=== PATIENT | female | born 1970 | race Caucasian/White ===

== ENCOUNTER 2018-02-10 17:59 | Emergency (ER) | payer MEDICAID, SELFPAY ==
[2018-02-10 18:05] VITALS: BP 152/106; PULSE 107; RESP 18; TEMP 36.5; O2SAT 98
--- NOTE | 2018-02-10 19:50 | W.ED.GENAD ---
Discharge Plan Discharge Details Chief Complaint: DentalOral Clinical Impression: Pain, dental Primary Care Provider: Molly Pelayo ED Provider: Anna Conrad Disposition Patient Disposition: HOME Condition: Stable Home Meds and New Rx's Prescriptions: New clindamycin HCl 150 mg capsule 450 mg PO TID 7 Days Qty: 63 RF: 0 Continue gabapentin 800 MG tablet 800 mg PO QID RF: 0 omeprazole 40 MG capsule,delayed release(DR/EC) 40 mg PO BID Qty: 60 RF: 0 zonisamide [Zonegran] 100 MG capsule 100 mg PO BID Qty: 6 RF: 0 alprazolam [Xanax XR] 3 MG tablet extended release 24 hr 3 mg PO HS RF: 0 zolpidem 5 MG tablet 5 mg PO HS RF: 0 prazosin 2 MG capsule 2 mg PO HS RF: 0 venlafaxine 75 MG tablet 300 mg PO DAILY AM RF: 0 clonidine HCl [Catapres] 0.1 MG tablet 0.2 mg PO BID Qty: 120 RF: 0 losartan 25 MG tablet 50 mg PO DAILY RF: 0 Discharge Instructions Instructions: Dental Caries (ED), Toothache (ED) Additional Instructions: Follow-up with your scheduled appointment with your dentist next week. Take the antibiotics until finished. Return to the emergency department with any worsening or new concerning symptoms. Discharge Data Discharge Date/Time-TO BE ENTERED AT DEPARTURE: 02/10/18 20:06 Discharge Physician: Anna Conrad Medical Decision Making MDM Narrative Medical decision making narrative: Patient is a 47-year-old female who presents with dental pain for the past week. She states she fell last week and had a seizure and hit her tooth and has been having pain in this area. States she has had pain in this area before but states it became worse since then. She has diffuse dental caries throughout. Her area of pain is tooth #26 or 27, hard to know as patient has multiple missing teeth. There is no obvious abscess or fracture but she does have tenderness to palpation as well as erythema and mild edema of mucosa at base of tooth. She has no fever and appears nontoxic. She is swallowing without difficulty, airway intact and no drooling. There is no submandibular swelling or findings consistent with Oneal's angina. The patient has an allergy to penicillin. She states she has tolerated clindamycin in the past. She states she has a follow-up appointment with her dentist in 1 week but is requesting medication for pain. Patient has been seen here before for narcotic overdose and has a history of opioid abuse in the past. She also takes multiple sedating meds including Lorazepam and gabapentin. She is requesting narcotic pain medication. I explained to patient that I cannot give this to her but I will give her a dose of clindamycin and a prescription for home. She was also offered a dental block but refuses this. She was also offered care management to help for an earlier follow-up appointment with dentist prior to next week but she is declining this as well. Patient is requesting to leave. She was instructed to return here with any concerns. HPI - General Adult General Mode of arrival: ambulatory. Date/Time Provider Initiated Documentation: 02/10/18 19:00. Limitations to Documentation: no limitations. Information obtained by: patient. HPI Narrative: Patient is a 47-year-old female who presents the ER with complaint of right lower tooth pain for the past week. Patient states she had a recent seizure and fell and may have bit down on her tooth and sustained a tooth fracture. Patient states she has been complaining of pain in this area since then. She denies known fever. Patient cannot take Motrin due to allergy. Related Data Home Medications Medication Instructions Recorded Confirmed gabapentin 800 mg PO QID tab-cap 03/30/17 12/29/17 alprazolam [Xanax XR] 3 mg PO HS 04/07/17 12/29/17 prazosin 2 mg PO HS 04/07/17 12/29/17 venlafaxine 300 mg PO DAILY AM 04/07/17 12/29/17 zolpidem 5 mg PO HS 04/07/17 12/29/17 losartan 50 mg PO DAILY 12/29/17 12/29/17 Previous Rx's Medication Instructions Recorded zonisamide [Zonegran] 100 mg PO BID #6 capsule 03/27/16 clonidine HCl [Catapres] 0.2 mg PO BID #120 tab 12/21/17 clindamycin HCl 450 mg PO TID 7 Days #63 cap 02/10/18 Allergies Allergy/AdvReac Type Severity Reaction Status Date / Time ibuprofen Allergy Severe anaphylaxis Unverified 02/10/18 18:28 ketorolac tromethamine Allergy Severe rash/throat Unverified 02/10/18 18:28 [From Toradol] swelling Penicillins Allergy Severe anaphylaxis Unverified 02/10/18 18:28 amoxicillin trihydrate Allergy Mild Skin Rash Unverified 02/10/18 18:28 [From Augmentin] codeine [Codeine] Allergy Mild Skin Rash Unverified 02/10/18 18:28 hydromorphone [From Dilaudid] Allergy Mild Skin Rash Unverified 02/10/18 18:28 potassium clavulanate Allergy Mild Skin Rash Unverified 02/10/18 18:28 [From Augmentin] lithium [[place]] AdvReac Intermediate tremor Unverified 02/10/18 18:28 divalproex sodium AdvReac Mild Nausea Unverified 02/10/18 18:28 [From Depakote] General Stated Complaint: DentalOral NIKIA: 4 Review of Systems Review of Systems All systems reviewed & are unremarkable except as noted in HPI and below Constitutional Denies chills, Denies fever(s) and Denies headache(s) Eyes Patient Reports system reviewed and no additional complaints, except as docu and Denies blurry vision ENT Reports dental pain, Reports otalgia (right side ), Denies headache(s), Denies nasal congestion, Denies sore throat and Denies throat swelling Cardiovascular Denies chest pain, Denies syncope, Denies rapid heart rate and Denies dyspnea Respiratory Denies dyspnea Musculoskeletal Denies back pain and Denies joint swelling Integumentary/Breasts Denies lesions and Denies rash Neurologic Denies syncope and Denies headache(s) Psychiatric Denies depression Allergic/Immunologic Denies throat swelling [facility] Medical History Anxiety Helicobacter pylori infection Peptic ulcer disease Restless leg syndrome Seizure disorder Substance abuse in remission Social History Smoking/Tobacco Use Status: Current-Occasional Surgical History EGD - MAC (04/06/17) EGD - MAC (07/07/17) Exam Const General: cooperative and healthy appearing Orientation: alert and awake HENMT Head: normal to inspection Ears: hearing grossly normal bilaterally, external ears normal and TM's normal bilaterally General nose exam: external nose normal and nares normal Face and sinus: normal facial exam Mouth: oral mucosae normal Teeth and gingiva: other (Dental caries and multiple missing teeth throughout. She has tenderness to palpation possible tooth #26 or 27. There is surrounding mild erythema and edema noted at base of tooth but no discrete abscess noted) Throat: posterior oropharynx normal, uvula midline and no peritonsillar masses Eyes General: appearance normal, both eyes and all related structures Eyelids: eyelids normal EOM: EOM intact bilaterally Neck Neck: normal visual inspection Lymphatic: no lymphadenopathy noted Resp Effort & Inspection: normal respiratory effort and able to speak in complete sentences Cardio Rate: regular rate Skin General skin exam: no rashes or lesions noted Neuro General: alert and awake Cognition: normal cognition Speech: speech normal Gait: normal gait Extrem General: normal to inspection and full ROM Psych Appearance: grossly normal Mental Status: mental status grossly normal Speech and Movement: speech and movement normal Affect: normal affect Thought Process: normal Course Vital Signs Temperature 97.7 F 02/10/18 18:05 Pulse 107 H 02/10/18 18:05 Respiratory Rate 18 02/10/18 18:05 Blood Pressure 152/106 H 02/10/18 18:05 Pulse Oximetry 98 02/10/18 18:05 Temperature 97.7 F 02/10/18 18:05 Pulse 107 H 02/10/18 18:05 Respiratory Rate 18 02/10/18 18:05 Blood Pressure 152/106 H 02/10/18 18:05 Pulse Oximetry 98 02/10/18 18:05
--- NOTE | 2018-02-10 20:02 | ED.GENADUL_ITS ---
Discharge Plan Discharge Details Chief Complaint: DentalOral Clinical Impression: Pain, dental Primary Care Provider: Molly Pelayo ED Provider: Anna Conrad Disposition Patient Disposition: HOME Condition: Stable Home Meds and New Rx's Prescriptions: New clindamycin HCl 150 mg capsule 450 mg PO TID 7 Days Qty: 63 RF: 0 Continue gabapentin 800 MG tablet 800 mg PO QID RF: 0 omeprazole 40 MG capsule,delayed release(DR/EC) 40 mg PO BID Qty: 60 RF: 0 zonisamide [Zonegran] 100 MG capsule 100 mg PO BID Qty: 6 RF: 0 alprazolam [Xanax XR] 3 MG tablet extended release 24 hr 3 mg PO HS RF: 0 zolpidem 5 MG tablet 5 mg PO HS RF: 0 prazosin 2 MG capsule 2 mg PO HS RF: 0 venlafaxine 75 MG tablet 300 mg PO DAILY AM RF: 0 clonidine HCl [Catapres] 0.1 MG tablet 0.2 mg PO BID Qty: 120 RF: 0 losartan 25 MG tablet 50 mg PO DAILY RF: 0 Discharge Instructions Instructions: Dental Caries (ED), Toothache (ED) Additional Instructions: Follow-up with your scheduled appointment with your dentist next week. Take the antibiotics until finished. Return to the emergency department with any worsening or new concerning symptoms. Discharge Data Discharge Date/Time-TO BE ENTERED AT DEPARTURE: 02/10/18 20:06 Discharge Physician: Anna Conrad Medical Decision Making MDM Narrative Medical decision making narrative: Patient is a 47-year-old female who presents with dental pain for the past week. She states she fell last week and had a seizure and hit her tooth and has been having pain in this area. States she has had pain in this area before but states it became worse since then. She has diffuse dental caries throughout. Her area of pain is tooth #26 or 27, hard to know as patient has multiple missing teeth. There is no obvious abscess or fracture but she does have tenderness to palpation as well as erythema and mild edema of mucosa at base of tooth. She has no fever and appears nontoxic. She is swallowing without difficulty, airway intact and no drooling. There is no submandibular swelling or findings consistent with Oneal 's angina. The patient has an allergy to penicillin. She states she has tolerated clindamycin in the past. She states she has a follow-up appointment with her dentist in 1 week but is requesting medication for pain. Patient has been seen here before for narcotic overdose and has a history of opioid abuse in the past. She also takes multiple sedating meds including Lorazepam and gabapentin. She is requesting narcotic pain medication. I explained to patient that I cannot give this to her but I will give her a dose of clindamycin and a prescription for home. She was also offered a dental block but refuses this. She was also offered care management to help for an earlier follow-up appointment with dentist prior to next week but she is declining this as well. Patient is requesting to leave. She was instructed to return here with any concerns. HPI - General Adult General Mode of arrival: ambulatory . Date/Time Provider Initiated Documentation: 02/10/18 19:00 . Limitations to Documentation: no limitations . Information obtained by: patient . HPI Narrative: Patient is a 47-year-old female who presents the ER with complaint of right lower tooth pain for the past week. Patient states she had a recent seizure and fell and may have bit down on her tooth and sustained a tooth fracture. Patient states she has been complaining of pain in this area since then. She denies known fever. Patient cannot take Motrin due to allergy. Related Data Home Medications Medication Instructions Recorded Confirmed gabapentin 800 mg PO QID tab-cap 03/30/17 12/29/17 alprazolam [Xanax XR] 3 mg PO HS 04/07/17 12/29/17 prazosin 2 mg PO HS 04/07/17 12/29/17 venlafaxine 300 mg PO DAILY AM 04/07/17 12/29/17 zolpidem 5 mg PO HS 04/07/17 12/29/17 losartan 50 mg PO DAILY 12/29/17 12/29/17 Previous Rx's Medication Instructions Recorded zonisamide [Zonegran] 100 mg PO BID #6 capsule 03/27/16 clonidine HCl [Catapres] 0.2 mg PO BID #120 tab 12/21/17 clindamycin HCl 450 mg PO TID 7 Days #63 cap 02/10/18 Allergies Allergy/AdvReac Type Severity Reaction Status Date / Time ibuprofen Allergy Severe anaphylaxis Unverified 02/10/18 18:28 ketorolac tromethamine Allergy Severe rash/throat Unverified 02/10/18 18:28 [From Toradol] swelling Penicillins Allergy Severe anaphylaxis Unverified 02/10/18 18:28 amoxicillin trihydrate Allergy Mild Skin Rash Unverified 02/10/18 18:28 [From Augmentin] codeine [Codeine] Allergy Mild Skin Rash Unverified 02/10/18 18:28 hydromorphone [From Dilaudid] Allergy Mild Skin Rash Unverified 02/10/18 18:28 potassium clavulanate Allergy Mild Skin Rash Unverified 02/10/18 18:28 [From Augmentin] lithium [[place]] AdvReac Intermediate tremor Unverified 02/10/18 18:28 divalproex sodium AdvReac Mild Nausea Unverified 02/10/18 18:28 [From Depakote] General Stated Complaint: DentalOral NIKIA: 4 Review of Systems Review of Systems All systems reviewed & are unremarkable except as noted in HPI and below Constitutional Denies chills, Denies fever(s) and Denies headache(s) Eyes Patient Reports system reviewed and no additional complaints, except as docu and Denies blurry vision ENT Reports dental pain, Reports otalgia (right side ), Denies headache(s), Denies nasal congestion, Denies sore throat and Denies throat swelling Cardiovascular Denies chest pain, Denies syncope, Denies rapid heart rate and Denies dyspnea Respiratory Denies dyspnea Musculoskeletal Denies back pain and Denies joint swelling Integumentary/Breasts Denies lesions and Denies rash Neurologic Denies syncope and Denies headache(s) Psychiatric Denies depression Allergic/Immunologic Denies throat swelling [facility] Medical History Anxiety Helicobacter pylori infection Peptic ulcer disease Restless leg syndrome Seizure disorder Substance abuse in remission Social History Smoking/Tobacco Use Status: Current-Occasional Surgical History EGD - MAC (04/06/17) EGD - MAC (07/07/17) Exam Const General: cooperative and healthy appearing Orientation: alert and awake HENMT Head: normal to inspection Ears: hearing grossly normal bilaterally, external ears normal and TM's normal bilaterally General nose exam: external nose normal and nares normal Face and sinus: normal facial exam Mouth: oral mucosae normal Teeth and gingiva: other (Dental caries and multiple missing teeth throughout. She has tenderness to palpation possible tooth #26 or 27. There is surrounding mild erythema and edema noted at base of tooth but no discrete abscess noted) Throat: posterior oropharynx normal, uvula midline and no peritonsillar masses Eyes General: appearance normal, both eyes and all related structures Eyelids: eyelids normal EOM: EOM intact bilaterally Neck Neck: normal visual inspection Lymphatic: no lymphadenopathy noted Resp Effort & Inspection: normal respiratory effort and able to speak in complete sentences Cardio Rate: regular rate Skin General skin exam: no rashes or lesions noted Neuro General: alert and awake Cognition: normal cognition Speech: speech normal Gait: normal gait Extrem General: normal to inspection and full ROM Psych Appearance: grossly normal Mental Status: mental status grossly normal Speech and Movement: speech and movement normal Affect: normal affect Thought Process: normal Course Vital Signs Temperature 97.7 F 02/10/18 18:05 Pulse 107 H 02/10/18 18:05 Respiratory Rate 18 02/10/18 18:05 Blood Pressure 152/106 H 02/10/18 18:05 Pulse Oximetry 98 02/10/18 18:05 Temperature 97.7 F 02/10/18 18:05 Pulse 107 H 02/10/18 18:05 Respiratory Rate 18 02/10/18 18:05 Blood Pressure 152/106 H 02/10/18 18:05 Pulse Oximetry 98 02/10/18 18:05
[2018-02-10] MEDS: Clindamycin 150 MG CAP 450 MG PO (20:05)
--- NOTE | 2018-02-26 09:46 | PDOC.ERCMPRO ---
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
--- NOTE | 2018-02-26 09:51 | CMPROGNOTE_ITS ---
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
== END 2018-02-10 20:06 | disposition home or self-care (01) ==
PROVIDERS: Emergency Provider Physician Assistant; PCP Family Medicine
DX: R68.84 Jaw pain (principal); I10 Essential (primary) hypertension
CPT/HCPCS: 99283

== ENCOUNTER 2018-03-06 15:16 | Emergency (ER) | payer MEDICAID, SELFPAY ==
[2018-03-06 15:22] VITALS: BP 125/76; PULSE 105; RESP 16; TEMP 36.5; O2SAT 98
--- NOTE | 2018-03-06 17:25 | DI.CT_ITS ---
SYMPTOM/DIAGNOSIS: HEAD INJURY WITH ONGOING HEADACHE CERVICAL SPINE CT: 03/06 CT examination of the cervical spine was performed utilizing multi-slice acquisition and multi-planar reconstruction. There is no evidence of a cervical fracture or dislocation. Images obtained through the lung apices are unremarkable. Tracheolaryngeal structures appear intact. No cervical mass or adenopathy seen. CONCLUSION: No evidence of acute cervical fracture. CRANIAL CT: 03/[address] was performed. Ventricular system is normal in appearance. No evidence of acute intracranial hemorrhage, mass effect or midline shift. The orbital and temporal bone structures appear intact. No calvarial fracture seen. CONCLUSION: No evidence of acute intracranial injury.
--- NOTE | 2018-03-06 18:02 | W.ED.GENAD ---
Discharge Plan Disposition Patient Disposition: AGAINST MEDICAL ADVICE Condition: Stable Discharge Details Chief Complaint: Headache Clinical Impression: Headache Primary Care Provider: Molly Pelayo ED Provider: Alisson Villalpando Home Meds and New Rx's Prescriptions: Continue gabapentin 800 MG tablet 800 mg PO QID RF: 0 omeprazole 40 MG capsule,delayed release(DR/EC) 40 mg PO BID Qty: 60 RF: 0 zonisamide [Zonegran] 100 MG capsule 100 mg PO BID Qty: 6 RF: 0 alprazolam [Xanax XR] 3 MG tablet extended release 24 hr 3 mg PO HS RF: 0 zolpidem 5 MG tablet 5 mg PO HS RF: 0 prazosin 2 MG capsule 2 mg PO HS RF: 0 venlafaxine 75 MG tablet 300 mg PO DAILY AM RF: 0 clonidine HCl [Catapres] 0.1 MG tablet 0.2 mg PO BID Qty: 120 RF: 0 losartan 25 MG tablet 50 mg PO DAILY RF: 0 Discharge Data Discharge Date/Time-TO BE ENTERED AT DEPARTURE: 03/06/18 18:37 Medical Decision Making Patient presents to the emergency department for evaluation of a headache following a head injury yesterday obtained following a seizure she has a known seizure history states she has been taking her medications as prescribed. She denies any other injuries from the seizure. I am going to obtain routine lab work including electrolytes CBC and a head CT to rule out an acute traumatic injury. I did want to give her IV fluids and IV Compazine to treat her headache but staff was unable to obtain IV access. I did offer Tylenol which she did not want to except that she had taken some prior to arrival I then offered her some Benadryl to help with her symptoms and she declined that stating she takes that at nighttime. She wanted something stronger for her headache I did explain that in the setting of a head injury that narcotic administration would not be prudent on my part. Review of her labs showed some mild dehydration with a sodium of 134 BUN 22 creatinine 1.08. She states her p.o. intake was poor over the last 24 hours following her seizure. She denies nausea vomiting or abdominal pain. Since we were unable to obtain IV access I did ask staff to push p.o. fluids on her and she was tolerating the fluids very well in the emergency department. She did however become very angry with me as I was not administering narcotics. I still needed to review her CAT scan which had not been read by radiology yet and she was requesting to leave AMA. Because I did not have a final read I did not feel comfortable with a discharge so did review AMA risks with her including undiagnosed acute intracranial bleed from her trauma leading to or debility. She verbalized understanding of this risk and did sign the AMA paperwork. After she left the department her head CT read did show no acute intracranial process. Medical Records Medical records reviewed: Yes I reviewed the patient's medical records. Patient presents to the emergency department for persistent headache not responsive to acetaminophen after having a seizure yesterday. She states she did strike her head. She states is typical for her to have seizures but she has not had a seizure for 6 months. She denies any other injury. She has reports of nausea. She has no other injuries reported. HPI General Date/Time Provider Initiated Documentation: 03/06/18 17:25. Related Data Home Medications Medication Instructions Recorded Confirmed zonisamide [Zonegran] 100 mg PO BID #6 capsule 03/27/16 03/06/18 gabapentin 800 mg PO QID tab-cap 03/30/17 03/06/18 alprazolam [Xanax XR] 3 mg PO HS 04/07/17 03/06/18 prazosin 2 mg PO HS 04/07/17 03/06/18 venlafaxine 300 mg PO DAILY AM 04/07/17 03/06/18 zolpidem 5 mg PO HS 04/07/17 03/06/18 omeprazole 40 mg PO BID #60 tab-cap 04/14/17 03/06/18 clonidine HCl [Catapres] 0.2 mg PO BID #120 tab 12/21/17 03/06/18 losartan 50 mg PO DAILY 12/29/17 03/06/18 Previous Rx's Medication Instructions Recorded zonisamide [Zonegran] 100 mg PO BID #6 capsule 03/27/16 omeprazole 40 mg PO BID #60 tab-cap 04/14/17 clonidine HCl [Catapres] 0.2 mg PO BID #120 tab 12/21/17 Allergies Allergy/AdvReac Type Severity Reaction Status Date / Time ibuprofen Allergy Severe anaphylaxis Unverified 03/06/18 15:43 ketorolac tromethamine Allergy Severe rash/throat Unverified 03/06/18 15:43 [From Toradol] swelling Penicillins Allergy Severe anaphylaxis Unverified 03/06/18 15:43 amoxicillin trihydrate Allergy Mild Skin Rash Unverified 03/06/18 15:43 [From Augmentin] codeine [Codeine] Allergy Mild Skin Rash Unverified 03/06/18 15:43 hydromorphone [From Dilaudid] Allergy Mild Skin Rash Unverified 03/06/18 15:43 potassium clavulanate Allergy Mild Skin Rash Unverified 03/06/18 15:43 [From Augmentin] lithium [[place]] AdvReac Intermediate tremor Unverified 03/06/18 15:43 divalproex sodium AdvReac Mild Nausea Unverified 03/06/18 15:43 [From Depakote] General Stated Complaint: Headache NIKIA: 3 Review of Systems Review of Systems All systems reviewed & are unremarkable except as noted in HPI and below Constitutional Reports fatigue, Reports headache(s) and Reports poor appetite Eyes Denies change in vision ENT Reports headache(s) Cardiovascular Denies chest pain and Denies dyspnea Respiratory Denies cough and Denies dyspnea Gastrointestinal Denies abdominal pain, Denies constipation, Denies diarrhea and Reports nausea Musculoskeletal Denies back pain Neurologic Reports headache(s) Endocrine Reports fatigue PFSH Medical History Anxiety Helicobacter pylori infection Peptic ulcer disease Restless leg syndrome Seizure disorder Substance abuse in remission Social History Smoking/Tobacco Use Status: Current-Occasional Surgical History EGD - MAC (04/06/17) EGD - MAC (07/07/17) Exam Const General: cooperative, healthy appearing, comfortable, no acute distress and well developed Orientation: alert, awake and oriented x3 HENMT Mouth: moist mucous membranes Resp Effort & Inspection: normal respiratory effort Auscultation: clear to auscultation bilaterally Cardio Rate: regular rate Rhythm: regular rhythm GI Inspection: normal to inspection Palpation: soft, no guarding and no hernias Auscultation: normal bowel sounds Skin General skin exam: no rashes or lesions noted Neuro General: alert, awake and oriented x3 Extrem General: normal to inspection and full ROM Course Vital Signs Temperature 36.5 C 03/06/18 15:22 Pulse 105 H 03/06/18 15:22 Respiratory Rate 16 03/06/18 15:22 Blood Pressure 125/76 03/06/18 15:22 Pulse Oximetry 98 03/06/18 15:22 Temperature 36.5 C 03/06/18 15:22 Temperature Source Temporal Artery Scan 03/06/18 15:22 Pulse 105 H 03/06/18 15:22 Respiratory Rate 16 03/06/18 15:22 Respiratory Effort Non-Labored 03/06/18 15:26 Blood Pressure 125/76 03/06/18 15:22 Pulse Oximetry 98 03/06/18 15:22 Pain Level 10 03/06/18 15:22
[2018-03-06 18:19] LABS: Abs Immature Grans 0.02 k/cumm (0.0-0.09); Absolute Basophil Count 0.06 k/cumm (0.0-0.2); Absolute Eosinophil Count 0.22 k/cumm (0.0-0.7); Absolute Lymphocyte Count 3.87 k/cumm (1.2-3.4); Absolute Monocyte Count 0.86 k/cumm (0.11-0.7); Absolute Neutrophil Count 5.34 k/cumm (1.2-6.7); Basophils % 0.6; Eosinophils % 2.1; HCT 39.4 % (36.0-46.0); HGB 13.3 g/dL (12.0-15.5); Immature Grans % 0.2; Lymphocytes % 37.3; Mean Corp. HGB Concentration 33.8 g/dL (32.0-36.0); Mean Corpuscular Hemoglobin 31.3 pg (27.0-33.0); Mean Corpuscular Volume 92.7 fL (80-95); Mean Platelet Volume 9.2 fL (8.0-11.0); Monocytes % 8.3; Neutrophils % 51.5; Platelet Count 368 x1000/uL (130-400); RBC 4.25 m/cumm (4.00-5.20); RBC Distribution Width 12.7 % (11.7-14.6); White Blood Cell Count 10.37 k/cumm (4.4-10.8)
--- NOTE | 2018-03-06 18:27 | DI.VRAD_ITS ---
EXAM: CT Head Without Intravenous Contrast CLINICAL HISTORY: 47 years old, female; Injury or trauma; Injury Head injury with ongoing headache, HX of seizures; Initial encounter; Blunt trauma TECHNIQUE: Axial computed tomography images of the head/brain without intravenous contrast. Coronal and sagittal reformatted images were created and reviewed. COMPARISON: No relevant prior studies available. FINDINGS: Brain: Unremarkable. No hemorrhage. No significant white matter disease. No edema. Ventricles: Unremarkable. No ventriculomegaly. Bones/joints: Unremarkable. No acute fracture. Soft tissues: Unremarkable. Vasculature: Mild calcified intracranial atherosclerotic vessel disease. Sinuses: Unremarkable as visualized. No acute sinusitis. Mastoid air cells: Unremarkable as visualized. No mastoid effusion. IMPRESSION: No acute findings. EXAM: CT Cervical Spine Without Intravenous Contrast CLINICAL HISTORY: 47 years old, female; Injury or trauma; Injury Head injury with ongoing headache, HX of seizures; Initial encounter; Blunt trauma TECHNIQUE: Axial computed tomography images of the cervical spine without intravenous contrast. Coronal and sagittal reformatted images were created and reviewed. COMPARISON: CT HEAD AND CSPINE W/O CONTRAST 12/16/2017 7:25 PM FINDINGS: Vertebrae: Mild to moderate multilevel degenerative changes including degenerative disc disease, spondylosis and facet degenerative changes. Mild kyphosis which may be secondary to patient positioning and/or muscle spasm and/or multilevel degenerative change. No acute fracture. Discs/spinal canal/neural foramina: See above. Other bones/joints: Healed right clavicular fracture. Soft tissues: Unremarkable. Lung apices: Unremarkable as visualized. IMPRESSION: No acute findings. Dictated and Authenticated by: Noe Bullard MD. Ordering:JAVED GUADALUPE MD
[2018-03-06 18:31] LABS: Anion Gap 9.8 mmol/L (3-11); BUN 22 mg/dL (7-18); CO2 25.2 mmol/L (21.0-32.0); CREATININE 1.08 mg/dL (0.55-1.02); Calcium 9.3 mg/dL (8.5-10.1); Chloride 99 mmol/L (98-107); Estimated GFR 53.92 (mL/min/1.73m2); Glucose 76 mg/dL (70-100); Potassium 4.2 mmol/L (3.5-5.1); Sodium 134 mmol/L (136-145)
[2018-03-06 18:32] LABS: INR 1.1 (1.0-3.5); Prothrombin Time 10.3 sec (9.3-10.8)
== END 2018-03-06 18:37 | disposition left against medical advice (07) ==
LOC: ER 17:51
PROVIDERS: Emergency Provider Nurse Practitioner Acute Care; PCP Family Medicine
DX: R51 Headache (principal); S09.90XA Unspecified injury of head, initial encounter; W01.190A Fall on same level from slipping, tripping and stumbling with subsequent striking against furniture, initial encounter; G40.909 Epilepsy, unspecified, not intractable, without status epilepticus; E87.1 Hypo-osmolality and hyponatremia; I10 Essential (primary) hypertension
CPT/HCPCS: 36415; 80048; 99284; 70450; 72125; 85025; 85610; 99285

== ENCOUNTER 2018-03-18 20:55 | Outpatient (REF) | payer MEDICAID, SELFPAY | END 2018-03-18 21:15 | LOC: NCHCN 20:55 | PROVIDERS: PCP Family Medicine; Visit Provider Family Medicine | DX: R30.0 Dysuria (principal); R10.9 Unspecified abdominal pain | CPT/HCPCS: 87086 ==

== ENCOUNTER 2018-03-23 13:44 | Emergency (ER) | payer MEDICAID, SELFPAY ==
[2018-03-23 13:51] VITALS: BP 177/113; PULSE 89; RESP 16; TEMP 36.5; O2SAT 100
--- NOTE | 2018-03-23 14:57 | W.ED.GENAD ---
Medical Decision Making <Александр Talbert DO - Last Filed: 04/21/18 10:05> This is a 47-year-old female with a past medical history of hypertension, peptic ulcer disease, anxiety, who presents today for evaluation of bilateral flank pain since , fever of 102 at home days ago, and mild abdominal pain. Physical exam demonstrates notable paraspinal tenderness and spasm, no midline tenderness. Mild to moderate bilateral CVA tenderness. Patient signs and symptoms are concerning for potential urolithiasis or bladder infection. We will perform urinalysis, laboratory workup, address her pain and her muscle spasms. We will most likely be getting a CT scan to rule out any acute stone there is any signs of significant blood in her urinalysis. 3:48 PM Orders have been placed, EKG has been evaluated, we did offer the patient Tylenol, Lidoderm patch, and Flexeril however she became very upset with these offerings and stated that I might as well just ripped my IV out if you are just going to treat me like this and not give me something real for my pain.I sat down and discussed the patient's feelings with her, I discussed my concerns with the current opiate crisis, as well as her reassuring vital signs. Discussed with her how it is my philosophy to start with these medications, and then escalate as needed. After this discussion she did agree to a trial with these medications to see if they would help her symptoms. The case will be signed out to my colleague Dr. Conrad. Differential at this time includes urinary tract infection, pyelonephritis, urolithiasis versus benign paraspinal muscle spasms secondary to chronic back pain. EKG 15: 41 Rate 84, MA 162, QTc 433, QRS 90, sinus rhythm, no ST elevations or depressions, no T wave inversions except for V1. Questionable Q waves in lead III. No evidence of STEMI, or right heart strain. Candidate vein examined with linear array probe - confirmed collapsibility, lack of pulsatility, and proper anatomic location. Using aseptic technique, 18-gauge IV catheter inserted with flash of blood noted, flow of venous blood confirmed in the right AC. Flushes easily and without pain. No hematoma or complications noted. IV secured. Patient tolerated well. <Anna Conrad DO - Last Filed: 03/26/18 02:39> Please see Dr. Talbert's note for initial presentation, exam and plan. Patient is a 47-year-old female who presents with bilateral flank pain with radiation into her groin for the past 5 days. She admits to a temp of 102 at home a few days ago but not since then. Dr. Talbert performed a cardiac workup and urinalysis and a dose of Flexeril. Dr. Talbert had also ordered a Lidoderm patch but she refused this. EKG noted a rate of 84, sinus, no acute ST elevation or depression, QTc 433, QRS 90. Prior to my evaluation after endorsement, nurse informed me that patient is requesting to leave. Patient states no one cares about me here. Blood pressure hypertensive, remainder vitals within normal limits. Afebrile. Patient appears nontoxic and in no acute distress. She has bilateral CVA tenderness. Abdomen soft and nontender. I discussed with patient at if we do not find any acute findings on workup, there would be no indication for narcotic pain medication. I have seen patient multiple times in the past for similar bilateral flank pain with negative workups. I discussed with the patient that if she waits I can discuss her lab work with her once it is resulted but she is refusing to stay for this. Patient also refused to sign AMA form and is refusing to take discharge instructions. Risks of and disability due to his serious pathology were explained and patient fully understands and is still refusing to stay. She demonstrated capacity to make decisions. Review of patient's labs after she left her unremarkable. White blood cell count 9.89. Hemoglobin 13.8. Creatinine 0.79. Troponin negative. Urinalysis negative. HPI <Александр Talbert, DO - Last Filed: 04/21/18 10:05> General Date/Time Provider Initiated Documentation: 03/23/18 14:37. HPI Narrative: This is a 47-year-old female who is well-known to the emergency department who presents today for evaluation of flank pain. Patient states that for the last 4-5 days she has had bilateral flank pain that started on the left, and radiates down to her groin. She denies any dysuria, but does admit to mild increase in urinary frequency. She does have a history of kidney stones. She states this feels slightly different from her previous kidney stones. The pain is not improved with the muscle relaxant she took at home. It is worsened with movement. Patient does state that on Thursday she had a fever of 102 for the maximum temperature, she did call her primary care provider today and they recommended that she come in for further evaluation in the emergency department. Patient denies any focal chest pain, but she does state that breathing does make her flank and groin pain slightly worse. She denies any cough, shortness of breath, hemoptysis. She denies any vomiting or diarrhea. She denies any previous history of cardiac disease. She does have a stress test that has been ordered on an outpatient basis this coming Thursday. Past surgical history is positive for cholecystectomy and hysterectomy. Patient denies any pertinent family history. She denies any current IV or illicit drug use. She has no other complaints at this time. Related Data Home Medications Medication Instructions Recorded Confirmed zonisamide [Zonegran] 100 mg PO BID #6 capsule 03/27/16 03/23/18 gabapentin 800 mg PO QID tab-cap 03/30/17 03/23/18 alprazolam [Xanax XR] 3 mg PO HS 04/07/17 03/23/18 prazosin 2 mg PO HS 04/07/17 03/23/18 venlafaxine 300 mg PO DAILY AM 04/07/17 03/23/18 zolpidem 5 mg PO HS 04/07/17 03/23/18 omeprazole 40 mg PO BID #60 tab-cap 04/14/17 03/23/18 clonidine HCl [Catapres] 0.2 mg PO BID #120 tab 12/21/17 03/23/18 losartan 50 mg PO DAILY 12/29/17 03/23/18 Previous Rx's Medication Instructions Recorded zonisamide [Zonegran] 100 mg PO BID #6 capsule 03/27/16 omeprazole 40 mg PO BID #60 tab-cap 04/14/17 clonidine HCl [Catapres] 0.2 mg PO BID #120 tab 12/21/17 Allergies Allergy/AdvReac Type Severity Reaction Status Date / Time ibuprofen Allergy Severe anaphylaxis Unverified 03/23/18 13:56 ketorolac tromethamine Allergy Severe rash/throat Unverified 03/23/18 13:56 [From Toradol] swelling Penicillins Allergy Severe anaphylaxis Unverified 03/23/18 13:56 amoxicillin trihydrate Allergy Mild Skin Rash Unverified 03/23/18 13:56 [From Augmentin] codeine [Codeine] Allergy Mild Skin Rash Unverified 03/23/18 13:56 hydromorphone [From Dilaudid] Allergy Mild Skin Rash Unverified 03/23/18 13:56 potassium clavulanate Allergy Mild Skin Rash Unverified 03/23/18 13:56 [From Augmentin] lithium [[place]] AdvReac Intermediate tremor Unverified 03/23/18 13:56 divalproex sodium AdvReac Mild Nausea Unverified 03/23/18 13:56 [From Depakote] General Stated Complaint: FlankPain NIKIA: 3 Review of Systems <Александр Talbert DO - Last Filed: 04/21/18 10:05> Review of Systems All systems reviewed & are unremarkable except as noted in HPI and below Exam <Александр Talbert DO - Last Filed: 04/21/18 10:05> Narrative Exam Narrative: 1.Const: Well-nourished, Well-developed, appearing stated age 2.Eyes: PERRL, no conjunctival injection, and symmetrical lids. 3.ENT: Atraumatic external nose and ears. Dry MM. Neck: Symmetric, trachea midline, No thyromegaly. 4.CVS: +S1/S2, No murmurs or gallops. Peripheral pulses 2+ and equal in all extremities. Brisk capillary refill in all extremities. 5.RESP: Unlabored respiratory effort. Clear to auscultation bilaterally. No wheezes rales or rhonchi 6.GI: Soft, Nondistended, No hepatosplenomegaly. No guarding or rebound. No focal abdominal tenderness, generalized abdominal tenderness throughout. Very mild. No signs of an acute abdomen, no pain at McBurney's point, negative Bradford sign. 7.MSK: Normocephalic/Atraumatic, Extremities w/o deformity or ttp No cyanosis or clubbing, Normal movement of all extremities. Notable paraspinal tenderness, as well as muscular spasms. Bilateral CVA tenderness on percussion. No significant chest pain on palpation. No significant calf tenderness or swelling. 8.Skin: Warm, Dry. No rashes or lesions. 9.Neuro: director auto II-XII grossly intact. Sensation grossly intact, no focal neurologic deficits. 10.Psych: (AAO) x3. Appropriate mood and affect Course <Александр Talbert DO - Last Filed: 04/21/18 10:05> Vital Signs Temperature 36.5 C 03/23/18 13:51 Pulse 89 03/23/18 13:51 Respiratory Rate 16 03/23/18 13:51 Blood Pressure 177/113 H 03/23/18 13:51 Pulse Oximetry 100 03/23/18 13:51 Temperature 36.5 C 03/23/18 13:51 Temperature Source Skin 03/23/18 13:51 Pulse 89 03/23/18 13:51 Respiratory Rate 16 03/23/18 13:51 Respiratory Effort Non-Labored 03/23/18 13:51 Blood Pressure 177/113 H 03/23/18 13:51 Blood Pressure Position Sitting 03/23/18 13:51 Pulse Oximetry 100 03/23/18 13:51 Oxygen Delivery Method Room Air 03/23/18 13:51 Oxygen Flow Rate 0 03/23/18 13:51 Pain Level 10 03/23/18 13:51 Sign Out <Александр Talbert DO - Last Filed: 04/21/18 10:05> Sign Out Data: Sign Out Comment: f/u labs Last updated by Александр Talbert DO at 03/23/18 15:58
--- NOTE | 2018-03-23 15:03 | ED.GENADUL_ITS ---
Medical Decision Making <Александр Talbert DO - Last Filed: 04/21/18 10:05> This is a 47-year-old female with a past medical history of hypertension, peptic ulcer disease, anxiety, who presents today for evaluation of bilateral flank pain since , fever of 102 at home days ago, and mild abdominal pain. Physical exam demonstrates notable paraspinal tenderness and spasm, no midline tenderness. Mild to moderate bilateral CVA tenderness. Patient signs and symptoms are concerning for potential urolithiasis or bladder infection. We will perform urinalysis, laboratory workup, address her pain and her muscle spasms. We will most likely be getting a CT scan to rule out any acute stone there is any signs of significant blood in her urinalysis. 3:48 PM Orders have been placed, EKG has been evaluated, we did offer the patient Tylenol, Lidoderm patch, and Flexeril however she became very upset with these offerings and stated that I might as well just ripped my IV out if you are just going to treat me like this and not give me something real for my pain.I sat down and discussed the patient's feelings with her, I discussed my concerns with the current opiate crisis, as well as her reassuring vital signs. Discussed with her how it is my philosophy to start with these medications, and then escalate as needed. After this discussion she did agree to a trial with these medications to see if they would help her symptoms. The case will be signed out to my colleague Dr. Conrad. Differential at this time includes urinary tract infection, pyelonephritis, urolithiasis versus benign paraspinal muscle spasms secondary to chronic back pain. EKG 15: 41 Rate 84, NV 162, QTc 433, QRS 90, sinus rhythm, no ST elevations or depressions , no T wave inversions except for V1. Questionable Q waves in lead III. No evidence of STEMI, or right heart strain. Candidate vein examined with linear array probe - confirmed collapsibility, lack of pulsatility, and proper anatomic location. Using aseptic technique, 18- gauge IV catheter inserted with flash of blood noted, flow of venous blood confirmed in the right AC. Flushes easily and without pain. No hematoma or complications noted. IV secured. Patient tolerated well. <Anna Conrad DO - Last Filed: 03/26/18 02:39> Please see Dr. Talbert's note for initial presentation, exam and plan. Patient is a 47-year-old female who presents with bilateral flank pain with radiation into her groin for the past 5 days. She admits to a temp of 102 at home a few days ago but not since then. Dr. Talbert performed a cardiac workup and urinalysis and a dose of Flexeril. Dr. Talbert had also ordered a Lidoderm patch but she refused this. EKG noted a rate of 84, sinus, no acute ST elevation or depression, QTc 433, QRS 90. Prior to my evaluation after endorsement, nurse informed me that patient is requesting to leave. Patient states no one cares about me here. Blood pressure hypertensive, remainder vitals within normal limits. Afebrile. Patient appears nontoxic and in no acute distress. She has bilateral CVA tenderness. Abdomen soft and nontender. I discussed with patient at if we do not find any acute findings on workup, there would be no indication for narcotic pain medication. I have seen patient multiple times in the past for similar bilateral flank pain with negative workups. I discussed with the patient that if she waits I can discuss her lab work with her once it is resulted but she is refusing to stay for this. Patient also refused to sign AMA form and is refusing to take discharge instructions. Risks of and disability due to his serious pathology were explained and patient fully understands and is still refusing to stay. She demonstrated capacity to make decisions. Review of patient's labs after she left her unremarkable. White blood cell count 9.89. Hemoglobin 13.8. Creatinine 0.79. Troponin negative. Urinalysis negative. HPI <Александр Talbert, DO - Last Filed: 04/21/18 10:05> General Date/Time Provider Initiated Documentation: 03/23/18 14:37 . HPI Narrative: This is a 47-year-old female who is well-known to the emergency department who presents today for evaluation of flank pain. Patient states that for the last 4-5 days she has had bilateral flank pain that started on the left, and radiates down to her groin. She denies any dysuria, but does admit to mild increase in urinary frequency. She does have a history of kidney stones. She states this feels slightly different from her previous kidney stones. The pain is not improved with the muscle relaxant she took at home. It is worsened with movement. Patient does state that on Thursday she had a fever of 102 for the maximum temperature, she did call her primary care provider today and they recommended that she come in for further evaluation in the emergency department. Patient denies any focal chest pain, but she does state that breathing does make her flank and groin pain slightly worse. She denies any cough, shortness of breath, hemoptysis. She denies any vomiting or diarrhea. She denies any previous history of cardiac disease. She does have a stress test that has been ordered on an outpatient basis this coming Thursday. Past surgical history is positive for cholecystectomy and hysterectomy. Patient denies any pertinent family history. She denies any current IV or illicit drug use. She has no other complaints at this time. Related Data Home Medications Medication Instructions Recorded Confirmed zonisamide [Zonegran] 100 mg PO BID #6 capsule 03/27/16 03/23/18 gabapentin 800 mg PO QID tab-cap 03/30/17 03/23/18 alprazolam [Xanax XR] 3 mg PO HS 04/07/17 03/23/18 prazosin 2 mg PO HS 04/07/17 03/23/18 venlafaxine 300 mg PO DAILY AM 04/07/17 03/23/18 zolpidem 5 mg PO HS 04/07/17 03/23/18 omeprazole 40 mg PO BID #60 tab-cap 04/14/17 03/23/18 clonidine HCl [Catapres] 0.2 mg PO BID #120 tab 12/21/17 03/23/18 losartan 50 mg PO DAILY 12/29/17 03/23/18 Previous Rx's Medication Instructions Recorded zonisamide [Zonegran] 100 mg PO BID #6 capsule 03/27/16 omeprazole 40 mg PO BID #60 tab-cap 04/14/17 clonidine HCl [Catapres] 0.2 mg PO BID #120 tab 12/21/17 Allergies Allergy/AdvReac Type Severity Reaction Status Date / Time ibuprofen Allergy Severe anaphylaxis Unverified 03/23/18 13:56 ketorolac tromethamine Allergy Severe rash/throat Unverified 03/23/18 13:56 [From Toradol] swelling Penicillins Allergy Severe anaphylaxis Unverified 03/23/18 13:56 amoxicillin trihydrate Allergy Mild Skin Rash Unverified 03/23/18 13:56 [From Augmentin] codeine [Codeine] Allergy Mild Skin Rash Unverified 03/23/18 13:56 hydromorphone [From Dilaudid] Allergy Mild Skin Rash Unverified 03/23/18 13:56 potassium clavulanate Allergy Mild Skin Rash Unverified 03/23/18 13:56 [From Augmentin] lithium [[place]] AdvReac Intermediate tremor Unverified 03/23/18 13:56 divalproex sodium AdvReac Mild Nausea Unverified 03/23/18 13:56 [From Depakote] General Stated Complaint: FlankPain NIKIA: 3 Review of Systems <Александр Talbert DO - Last Filed: 04/21/18 10:05> Review of Systems All systems reviewed & are unremarkable except as noted in HPI and below Exam <Александр Talbert DO - Last Filed: 04/21/18 10:05> Narrative Exam Narrative: 1.Const: Well-nourished, Well-developed, appearing stated age 2.Eyes: PERRL, no conjunctival injection, and symmetrical lids. 3.ENT: Atraumatic external nose and ears. Dry MM. Neck: Symmetric, trachea midline, No thyromegaly. 4.CVS: +S1/S2, No murmurs or gallops. Peripheral pulses 2+ and equal in all extremities. Brisk capillary refill in all extremities. 5.RESP: Unlabored respiratory effort. Clear to auscultation bilaterally. No wheezes rales or rhonchi 6.GI: Soft, Nondistended, No hepatosplenomegaly. No guarding or rebound. No focal abdominal tenderness, generalized abdominal tenderness throughout. Very mild. No signs of an acute abdomen, no pain at McBurney's point, negative Bradford sign. 7.MSK: Normocephalic/Atraumatic, Extremities w/o deformity or ttp No cyanosis or clubbing, Normal movement of all extremities. Notable paraspinal tenderness , as well as muscular spasms. Bilateral CVA tenderness on percussion. No significant chest pain on palpation. No significant calf tenderness or swelling. 8.Skin: Warm, Dry. No rashes or lesions. 9.Neuro: milling machine set up operator II-XII grossly intact. Sensation grossly intact, no focal neurologic deficits. 10.Psych: (AAO) x3. Appropriate mood and affect Course <Александр Talbert DO - Last Filed: 04/21/18 10:05> Vital Signs Temperature 36.5 C 03/23/18 13:51 Pulse 89 03/23/18 13:51 Respiratory Rate 16 03/23/18 13:51 Blood Pressure 177/113 H 03/23/18 13:51 Pulse Oximetry 100 03/23/18 13:51 Temperature 36.5 C 03/23/18 13:51 Temperature Source Skin 03/23/18 13:51 Pulse 89 03/23/18 13:51 Respiratory Rate 16 03/23/18 13:51 Respiratory Effort Non-Labored 03/23/18 13:51 Blood Pressure 177/113 H 03/23/18 13:51 Blood Pressure Position Sitting 03/23/18 13:51 Pulse Oximetry 100 03/23/18 13:51 Oxygen Delivery Method Room Air 03/23/18 13:51 Oxygen Flow Rate 0 03/23/18 13:51 Pain Level 10 03/23/18 13:51 Sign Out <Александр Talbert DO - Last Filed: 04/21/18 10:05> Sign Out Data: Sign Out Comment: f/u labs Last updated by Александр Talbert DO at 03/23/18 15:58
[2018-03-23] MEDS: Cyclobenzaprine 10 MG TAB PO (15:09)
[2018-03-23 15:29] LABS: Abs Immature Grans 0.03 k/cumm (0.0-0.09); Absolute Basophil Count 0.08 k/cumm (0.0-0.2); Absolute Eosinophil Count 0.33 k/cumm (0.0-0.7); Absolute Lymphocyte Count 3.89 k/cumm (1.2-3.4); Absolute Monocyte Count 0.74 k/cumm (0.11-0.7); Absolute Neutrophil Count 4.82 k/cumm (1.2-6.7); Basophils % 0.8; Eosinophils % 3.3; HCT 39.8 % (36.0-46.0); HGB 13.8 g/dL (12.0-15.5); Immature Grans % 0.3; Lymphocytes % 39.3; Mean Corp. HGB Concentration 34.7 g/dL (32.0-36.0); Mean Corpuscular Hemoglobin 31.7 pg (27.0-33.0); Mean Corpuscular Volume 91.5 fL (80-95); Monocytes % 7.5; Neutrophils % 48.8; Platelet Count 431 x1000/uL (130-400); RBC 4.35 m/cumm (4.00-5.20); RBC Distribution Width 13.2 % (11.7-14.6); White Blood Cell Count 9.89 k/cumm (4.4-10.8)
[2018-03-23 15:51] LABS: Bilirubin Negative (Negative); Blood Trace-intact (Negative); Clarity Clear; Glucose Negative (Negative); Ketones Negative (Negative); Leukocyte Esterase Negative (Negative); Nitrite Negative (Negative); Specific Gravity <= 1.005 (1.005-1.025); Urobilinogen 0.2 EU/dL (Up TO 0.2); pH 5.5 (5-8)
[2018-03-23 16:12] LABS: ALT 31 U/L (12-78); AST 18 U/L (15-37); Albumin 4.1 g/dL (3.4-5.0); Alkaline Phosphatase 154 U/L (46-116); Anion Gap 10.4 mmol/L (3-11); BUN 18 mg/dL (7-18); Bilirubin, Total 0.1 mg/dL (0.2-1.0); CO2 24.6 mmol/L (21.0-32.0); CREATININE 0.79 mg/dL (0.55-1.02); Calcium 8.7 mg/dL (8.5-10.1); Chloride 103 mmol/L (98-107); Glucose 99 mg/dL (70-100); Potassium 3.8 mmol/L (3.5-5.1); Sodium 138 mmol/L (136-145); Total Protein 8.2 g/dL (6.4-8.2); Troponin I < 0.02 ng/mL (0.00-0.06)
[2018-03-23 16:15] LABS: Bacteria Negative HPF (Negative); C & S Indicated? No; Casts Negative LPF (Negative); Crystals Negative HPF (Negative); Epithelial Cells Rare HPF (Negative); Mucus Negative (Negative); Other Cells Negative (Negative); RBC Negative (0-2); WBC Negative HPF (0-5)
[2018-03-23 16:20] LABS: Lipase 167 U/L (73-393)
[2018-03-23 16:44] VITALS: BP 176/105; PULSE 81; RESP 16; TEMP 36.4; O2SAT 97
[2018-03-23 16:45] VITALS: BP 176/105; PULSE 81; RESP 16; TEMP 36.4; O2SAT 97
== END 2018-03-23 16:49 | disposition left against medical advice (07) ==
PROVIDERS: Student in an Organized Health Care Education/Training Program; Emergency Provider Physician Assistant; PCP Family Medicine
DX: M54.5 Low back pain (principal); Z53.29 Procedure and treatment not carried out because of patient's decision for other reasons; Z87.442 Personal history of urinary calculi; I10 Essential (primary) hypertension
CPT/HCPCS: 36415; 80053; 83690; 93005; 99284; 81003; 81015; 84484; 85025; 93010

== ENCOUNTER 2018-04-28 14:31 | Emergency (ER) | payer MEDICAID, SELFPAY ==
[2018-04-28] VITALS (29 sets, daily range): BP systolic 115–139; BP diastolic 66–102; PULSE 78–97; RESP 16; TEMP 36.7; O2SAT 93–98
--- NOTE | 2018-04-28 15:34 | DI.RAD_ITS ---
SYMPTOMS/DIAGNOSIS: FACIAL EDEMA, SWELLING OF HANDS AP SEMIERECT AND LATERAL CHEST: The lungs are free of gross infiltrate. There is no evidence of a pneumothorax or pleural effusion. There is hypoinflation of the lungs. No focal air space opacities. The heart may be mildly enlarged. There is a probable old fracture of the right humerus, which is incompletely identified. No osseous changes involving the dorsal spine. Also note is made of old trauma involving the right clavicle. SUMMARY: Hypoinflation. No focal air space opacities. Stable mild cardiomegaly.
--- NOTE | 2018-04-28 15:37 | DI.CT_ITS ---
SYMPTOMS/DIAGNOSIS: CHANGE IN MENTAL STATUS, FACE AND NECK SWELLING CT OF THE NECK: The scan was performed without IV contrast which limits the evaluation of the soft tissues. The epiglottis appears normal. There is no significant tonsillar enlargement or airway narrowing. The submandibular, parotid and thyroid glands are also unremarkable. No abscess or retropharyngeal gas is seen. There are mild degenerative changes of the cervical spine. There is no evidence of adenopathy. There is some respiratory motion in the upper lobes. IMPRESSION: Limited exam. No acute abnormality is identified. NONCONTRAST HEAD CT: Comparison is made with [id number]. No intracranial hemorrhage, mass or infarct is seen. There is no evidence of skull fracture. The ventricles are normal in size. The visualized portions of the sinuses and mastoid air cells appear clear. IMPRESSION: Negative head CT.
--- NOTE | 2018-04-28 15:40 | W.ED.GENAD ---
Discharge Plan Disposition Patient Disposition: HOME Condition: Improving Discharge Details Chief Complaint: GenMedical Clinical Impression: Edema Primary Care Provider: Molly Pelayo ED Provider: Haider Kunz Home Meds and New Rx's Prescriptions: Continue gabapentin 800 MG tablet 800 mg PO QID RF: 0 omeprazole 40 MG capsule,delayed release(DR/EC) 40 mg PO BID Qty: 60 RF: 0 zonisamide [Zonegran] 100 MG capsule 100 mg PO BID Qty: 6 RF: 0 alprazolam [Xanax XR] 3 MG tablet extended release 24 hr 3 mg PO HS RF: 0 zolpidem 5 MG tablet 5 mg PO HS RF: 0 prazosin 2 MG capsule 2 mg PO HS RF: 0 venlafaxine 75 MG tablet 300 mg PO DAILY AM RF: 0 clonidine HCl [Catapres] 0.1 MG tablet 0.2 mg PO BID Qty: 120 RF: 0 losartan 25 MG tablet 50 mg PO DAILY RF: 0 Discharge Instructions Instructions: Edema (ED) Additional Instructions: Please take the provided Lasix 20 mg daily for the next 2 days. Return immediately to the emergency department for any chest pain, shortness of breath, difficulty breathing, worsening swelling or any further concerns she may have. If improving please call your primary care provider's office and schedule a follow-up appointment preferably in the next 1-2 weeks. Referrals: Molly Pelayo [Primary Care Provider] - 1 week Discharge Data Discharge Date/Time-TO BE ENTERED AT DEPARTURE: 04/28/18 20:47 Medical Decision Making <Noe Hyde NP - Last Filed: 04/28/18 16:48> Initial differential would include LISA, cardiac event, and reaction to medication. I do not believe this to be OD. Will evaluate with noncontrast CT of the head and neck, chest x-ray and labs. I will transfer care over to my colleague Haider LYNNE for disposition. I explained this to Pilar. Likely will need admission, again Pilar does look sick compared to previous visits. She has had admissions this year for acute kidney injury and intubated on one visit. Discuassed case with Haider, he accepted care of Pilar. <Haider Kunz NP - Last Filed: 04/28/18 23:41> Care of patient transferred to myself by Noe Hyde [employer] OPERATOR. Agree with his notation and physical exam prior to my care patient. Patient pending results of imaging and labs. Reviewed patient's labs and notes a leukocytosis, decreased renal function which is not as severe as previous episodes, BNP and troponin are normal, no major or significant electrolyte abnormality including normal albumin which would explain edema. CT scan of head and neck are unremarkable except for nonspecific edema and chest x-ray is negative with chest CT showing some mild nonspecific opacities. Patient denies any fever or chills, cough, shortness of breath or difficulty breathing. Patient reiterates her main concern is the facial and upper extremity edema along with her flank pain which she has had in the past with acute renal injury. Upon further speaking with the patient she does state history of having similar episodes in the past. Patient denies any chest pain and lower extremity involvement. Patient offered admission given edema for concern to luis alberto and continue to monitor patient's condition. Patient states due to holiday that she would prefer to leave AGAINST MEDICAL ADVICE. Discussed further with patient plan and patient was agreeable to receiving IV Lasix in the emergency department and further observation. Patient was observed for greater than 1 hour after receiving IV Lasix and pain medication and she states that she is significantly improving. Does not feel sleepy. And has eaten some shayna crackers. Patient does state improvement in sensation of swelling of hands which is mildly noticeable but patient does have a reduction of edema within the face. Patient is still adamant that she would prefer to be discharged and to return for any new or worsening symptoms which were thoroughly discussed with patient. Given the patient did have improvement I do feel that she is able to be safely discharged with very careful instructions to return. After discussion of diagnosis and plan of care patient has no further needs, questions, or concerns and states clear understanding to return to the emergency department for any worsening symptoms. HPI <Noe Hyde NP - Last Filed: 04/28/18 16:48> General Date/Time Provider Initiated Documentation: 04/28/18 14:41. Limitations to Documentation: altered mental status. Information obtained by: patient and family. History of Present Illness 47 year old F presents to the emergency department with the chief complaint of facial edema caused by LISA, described as moderate, HPI Narrative: 47 y/o female here with friend with c/o hand and face swelling. She tells me her hands began to swell about a week ago. Her face and eyes within last 48 hrs causing blurred vision. Like looking through slits she tells me. The hand swelling causes pain. She is very tired appearing and slow to respond during interview. Denies cp or sob. She believes this is from kidney problems Related Data Home Medications Medication Instructions Recorded Confirmed zonisamide [Zonegran] 100 mg PO BID #6 capsule 03/27/16 04/28/18 gabapentin 800 mg PO QID tab-cap 03/30/17 04/28/18 alprazolam [Xanax XR] 3 mg PO HS 04/07/17 04/28/18 prazosin 2 mg PO HS 04/07/17 04/28/18 venlafaxine 300 mg PO DAILY AM 04/07/17 04/28/18 zolpidem 5 mg PO HS 04/07/17 04/28/18 omeprazole 40 mg PO BID #60 tab-cap 04/14/17 04/28/18 clonidine HCl [Catapres] 0.2 mg PO BID #120 tab 12/21/17 04/28/18 losartan 50 mg PO DAILY 12/29/17 04/28/18 Previous Rx's Medication Instructions Recorded zonisamide [Zonegran] 100 mg PO BID #6 capsule 03/27/16 omeprazole 40 mg PO BID #60 tab-cap 04/14/17 clonidine HCl [Catapres] 0.2 mg PO BID #120 tab 12/21/17 Allergies Allergy/AdvReac Type Severity Reaction Status Date / Time ibuprofen Allergy Severe anaphylaxis Unverified 04/28/18 21:22 ketorolac tromethamine Allergy Severe rash/throat Unverified 04/28/18 21:22 [From Toradol] swelling Penicillins Allergy Severe anaphylaxis Unverified 04/28/18 21:22 amoxicillin trihydrate Allergy Mild Skin Rash Unverified 04/28/18 21:22 [From Augmentin] codeine [Codeine] Allergy Mild Skin Rash Unverified 04/28/18 21:22 hydromorphone [From Dilaudid] Allergy Mild Skin Rash Unverified 04/28/18 21:22 potassium clavulanate Allergy Mild Skin Rash Unverified 04/28/18 21:22 [From Augmentin] lithium [[place]] AdvReac Intermediate tremor Unverified 04/28/18 21:22 divalproex sodium AdvReac Mild Nausea Unverified 04/28/18 21:22 [From Depakote] General Stated Complaint: GenMedical NIKIA: 3 Review of Systems <Noe Hyde NP - Last Filed: 04/28/18 16:48> Eyes Reports blurry vision and Reports other (swelling) ENT Reports system reviewed and no additional complaints, except as docu Cardiovascular Reports system reviewed and no additional complaints, except as docu Respiratory Reports system reviewed and no additional complaints, except as docu Genitourinary Reports system reviewed and no additional complaints, except as docu Musculoskeletal Reports other (hand swelling and pain) Exam <Noe Hyde NP - Last Filed: 04/28/18 16:48> Narrative Exam Narrative: Pilar looks ill in comparison to what we typically see in Pilar. Face is swollen with periorbital edema. Skin is pale in appearance. Slow to speech. Neck is edematous. Const General: cooperative, comfortable, no acute distress, ill appearing and lethargic Nutritional Appearance: obese Orientation: awake and oriented x3 [facility] Head: atraumatic Ears: hearing grossly normal bilaterally and external ears normal General nose exam: external nose normal and nares normal Face and sinus: edema bilaterally Mouth: oral mucosae normal Throat: posterior oropharynx normal and uvula midline Eyes Alignment and Position: position normal Periorbital: periorbital findings abnormal bilaterally periorbital swelling; no tenderness Eyelids: eyelid abnormality right upper eyelid swelling, right lower eyelid swelling, left upper eyelid swelling and left lower eyelid swelling Conjunctivae: conjunctival abnormality bilaterally conjunctival injection EOM: EOM intact bilaterally Neck Neck: full ROM and anterior neck swelling Resp Effort & Inspection: normal respiratory effort Auscultation: clear to auscultation bilaterally Cardio Rate: regular rate Rhythm: regular rhythm Heart Sounds: S1 normal, S2 normal and no murmurs Bruits: no carotid bruits GI Inspection: distended Palpation: firm and nontender Auscultation: hypoactive bowel sounds Back/Spine/Pelvis Back: no CVA tenderness and No back tenderness Skin General skin exam: no rashes or lesions noted Neuro General: awake and oriented x3 Cognition: normal cognition Speech: abnormal speech (slow) Extrem General: abnormal ROM (limited and slow to upper and lower extremeties. Swelling and obesity is a restrictor) and edema Psych Appearance: grossly normal Course <Noe Hyde NP - Last Filed: 04/28/18 16:48> Vital Signs Temperature 36.7 C 04/28/18 14:42 Pulse 97 H 04/28/18 14:42 Respiratory Rate 16 04/28/18 14:42 Blood Pressure 120/71 04/28/18 14:42 Pulse Oximetry 96 04/28/18 14:42 Temperature 36.7 C 04/28/18 14:42 Temperature Source Skin 04/28/18 14:42 Pulse 97 H 04/28/18 14:42 Respiratory Rate 16 04/28/18 14:42 Respiratory Effort Non-Labored 04/28/18 14:42 Blood Pressure 120/71 04/28/18 14:42 Blood Pressure Position Sitting 04/28/18 14:42 Pulse Oximetry 96 04/28/18 14:42 Oxygen Delivery Method Room Air 04/28/18 14:42 Oxygen Flow Rate 0 04/28/18 14:42 Pain Level 8 04/28/18 14:42 Sign Out <Noe Hyde NP - Last Filed: 04/28/18 16:48> Sign Out Data: Sign Out Comment: Pilar was notified of care exchange to [place]. She was agreeable. Last updated by Noe Hyde NP at 04/28/18 16:50 Post-Handoff Eval: See MDM
--- NOTE | 2018-04-28 17:27 | DI.VRAD_ITS ---
EXAM: CT Neck Without Intravenous Contrast EXAM DATE/TIME: 04/28/2018 3:40 PM CLINICAL HISTORY: 47 years old, female; Signs and symptoms; Other: Facial/neck swelling; Patient HX: Face and neck swelling TECHNIQUE: Axial computed tomography images of the neck without intravenous contrast. Coronal and sagittal reformatted images were created and reviewed. COMPARISON: CT cervical spine 03/06/2018. FINDINGS: Limitations: Absence of IV contrast decreases soft tissue differentiation and sensitivity for detecting pathology. Nasopharynx: Normal. Oropharynx: Normal. No significant tonsillar enlargement. Hypopharynx: Normal. Larynx: Normal. Normal epiglottis. Trachea: Normal. Retropharyngeal space: Normal. Submandibular/Parotid glands: Normal. Glands are normal in size. Thyroid: The thyroid gland is normal. Bones/joints: The spine demonstrates mild degenerative changes at multiple levels. There is deformity of the right clavicle consistent with old fracture. Soft tissues: Normal. No significant soft tissue swelling. Vasculature: No acute findings. Lymph nodes: Normal. No lymphadenopathy. Lung apices: There are nonspecific subpleural groundglass opacities in the right upper lobe. There is a streaky pleural-based opacity in the left upper lobe. These findings are new in comparison to the prior examination. IMPRESSION: No acute abnormality. No evidence of edema. Nonspecific opacities in the upper lobes which are new in comparison to the cervical spine CT and are incompletely imaged in this examination. This could represent an inflammatory or infectious process. Remainder of non-emergent findings as described above. Dictated and Authenticated by: Jyoti Ardon MD. Ordering:ISAAC HOPSON MD
[2018-04-28 17:32] LABS: BE 1.4 mmol/L (-3-3); HCO3 28 mmol/L (22-28); pCO2 55 mmHg (34-47); pH 7.31 (7.35-7.45); pO2 60 mmHg (83-108); sO2 91 % (94-98); tCO2 26 mmol/L (22-29)
--- NOTE | 2018-04-28 17:32 | DI.VRAD_ITS ---
EXAM: CT Head Without Intravenous Contrast EXAM DATE/TIME: 04/28/2018 3:40 PM CLINICAL HISTORY: 47 years old, female; Signs and symptoms; Altered mental status/memory loss; Patient HX: Change in mental status TECHNIQUE: Axial computed tomography images of the head/brain without intravenous contrast. Coronal and sagittal reformatted images were created and reviewed. COMPARISON: CT HEAD CERVICAL SPINE WO 03/06/2018 5:32 PM FINDINGS: Brain: Normal. No hemorrhage. No significant white matter disease. No edema.The cortical/white matter interfaces are preserved throughout the brain. Ventricles: Normal. No ventriculomegaly. Bones/joints: Normal. No acute fracture. Sinuses: Normal as visualized. No acute sinusitis. Mastoid air cells: Normal as visualized. No mastoid effusion. Soft tissues: There is mild nonspecific infiltration of the facial subcutaneous fat which is new in comparison to the prior head CT. No soft tissue gas densities are identified. IMPRESSION: 1. There is mild nonspecific infiltration of the facial subcutaneous fat which is new in comparison to the prior head CT. No soft tissue gas densities are identified. 2. No acute intracranial abnormality. There has been no significant change in comparison to the prior examination. Remainder of non-emergent findings as described above. Dictated and Authenticated by: Jyoti Ardon MD. Ordering:ISAAC HOPSON MD
[2018-04-28 17:33] LABS: FIO2L R/A L; Site Left Radial
--- NOTE | 2018-04-28 17:34 | DI.VRAD_ITS ---
EXAM: XR Chest, 2 Views EXAM DATE/TIME: 04/28/2018 3:37 PM CLINICAL HISTORY: 47 years old, female; Pain; Chest pain TECHNIQUE: XR of the chest, 2 views. COMPARISON: [place] PORTABLE CHEST ONE VIEW 12/16/2017 8:38 PM FINDINGS: Limitations: The examination is technically less than ideal due to patient body habitus. Lungs: There is hypoinflation.There are no focal air space opacities. Pleural space: Unremarkable. No pleural effusion. No pneumothorax. Heart/Mediastinum: There is mild cardiomegaly which is stable. Bones/joints: There is deformity of the right clavicle consistent with old trauma. There is a probable old fracture of the proximal right humerus which is incompletely imaged. No acute osseous abnormality is identified. IMPRESSION: 1. Hypoinflation.There are no focal air space opacities. 2. Stable mild cardiomegaly. Remainder of non-emergent findings as described above. Dictated and Authenticated by: Jyoti Ardon MD. Ordering:ISAAC HOPSON MD
[2018-04-28 18:03] LABS: Abs Immature Grans 0.06 k/cumm (0.0-0.09); Absolute Basophil Count 0.03 k/cumm (0.0-0.2); Absolute Eosinophil Count 0.22 k/cumm (0.0-0.7); Absolute Lymphocyte Count 2.52 k/cumm (1.2-3.4); Basophils % 0.2; Eosinophils % 1.4; HCT 33.6 % (36.0-46.0); HGB 11.4 g/dL (12.0-15.5); Immature Grans % 0.4; Lymphocytes % 15.8; Mean Corp. HGB Concentration 33.9 g/dL (32.0-36.0); Mean Corpuscular Hemoglobin 31.6 pg (27.0-33.0); Mean Corpuscular Volume 93.1 fL (80-95); Mean Platelet Volume 9.4 fL (8.0-11.0); Monocytes % 8.2; Platelet Count 460 x1000/uL (130-400); RBC 3.61 m/cumm (4.00-5.20); White Blood Cell Count 15.93 k/cumm (4.4-10.8)
[2018-04-28 18:04] LABS: ALT 45 U/L (12-78); AST 70 U/L (15-37); Albumin 3.8 g/dL (3.4-5.0); Alkaline Phosphatase 147 U/L (46-116); Anion Gap 8.8 mmol/L (3-11); BUN 22 mg/dL (7-18); Bilirubin, Total 0.1 mg/dL (0.2-1.0); CO2 28.2 mmol/L (21.0-32.0); CREATININE 1.25 mg/dL (0.55-1.02); Calcium 8.7 mg/dL (8.5-10.1); Chloride 98 mmol/L (98-107); Estimated GFR 45.55 (mL/min/1.73m2); Glucose 74 mg/dL (70-100); Potassium 3.8 mmol/L (3.5-5.1); Sodium 135 mmol/L (136-145)
--- NOTE | 2018-04-28 18:06 | NUR.NOTE ---
pt ambulated to [facility] with standby -requested ice chips and crackers, that were provided. states that she want pain medication or she will go home, pt has been quite somnolent since arrival in ER. Reported pt concerns to provider, Haider Kunz NP. Nursing Note:
[2018-04-28 18:08] LABS: Absolute Monocyte Count 1.31 k/cumm (0.11-0.7); Absolute Neutrophil Count 11.79 k/cumm (1.2-6.7)
[2018-04-28 18:12] LABS: Bilirubin Negative (Negative); Blood Negative (Negative); Clarity Clear; Glucose Negative (Negative); Ketones Negative (Negative); Leukocyte Esterase Negative (Negative); Nitrite Negative (Negative); Urobilinogen 0.2 EU/dL (Up TO 0.2); pH 5.5 (5-8)
[2018-04-28 18:13] LABS: Magnesium 1.8 mg/dL (1.8-2.4); NT-proBNP 224 pg/mL
[2018-04-28 18:18] LABS: Troponin I < 0.02 ng/mL (0.00-0.06)
[2018-04-28 18:21] LABS: Bacteria Moderate HPF (Negative); Crystals Negative HPF (Negative); Epithelial Cells Few HPF (Negative); Other Cells Negative (Negative); RBC Negative (0-2)
[2018-04-28 18:22] LABS: C & S Indicated? Yes; Casts Negative LPF (Negative); Mucus Trace (Negative)
[2018-04-28 18:35] LABS: *AMPHETAMINES SCREEN URINE Negative (Negative); *BARBITURATES SCREEN URINE Negative (Negative); *BENZODIAZEPINES SCREEN URINE POSITIVE (Negative); Cannabinoids THC Negative (Negative); Cocaine Screen,Urine Negative (Negative); METHADONE URINE SCREEN Negative (Negative); OPIATES URINE SCREEN Negative (Negative)
[2018-04-28 18:39] LABS: Tricyclic Antidepressants Negative (Negative)
[2018-04-28] MEDS: Furosemide 40 MG/4 ML VIAL IVP (19:07)
[2018-04-28] MEDS: MORPHine 10 MG/ML VIAL 2 MG IVP (19:07)
[2018-04-28] MEDS: Normal Saline Flush 10 ML SYR IVP (19:08)
[2018-04-28] MEDS: Furosemide 20 MG TAB 40 MG PO (21:45)
--- NOTE | 2018-04-29 09:55 | NUR.NOTE ---
Nursing Note: Spoke with patient @ 0906 that she left the 2 lasix tablets here last night after her ED visit. She realized that. She stated that she would not be picking up the medication because she already has six 20 mg tablets at home that she will be using. She stated that she took her first dose today at 7am. Dannielle Martin.
== END 2018-04-28 20:47 | disposition home or self-care (01) ==
PROVIDERS: Nurse Practitioner Family; Emergency Provider Nurse Practitioner Family; PCP Family Medicine
DX: R60.9 Edema, unspecified (principal); R91.8 Other nonspecific abnormal finding of lung field; N17.9 Acute kidney failure, unspecified
CPT/HCPCS: 36415; 80053; 80307; 82805; 96374; 96375; 99284; 36600; 70450; 70490; 71046; 81003; 81015; 82140; 83735; 83880; 84484; 85025; 87086; J1940; J2270

== ENCOUNTER 2018-05-04 10:32 | Inpatient (IN) | payer MEDICAID, SELFPAY ==
[2018-05-04] VITALS (113 sets, daily range): BP systolic 93–147; BP diastolic 36–89; PULSE 69–107; RESP 5–21; TEMP 36.3–37; O2SAT 89–100
--- NOTE | 2018-05-04 10:50 | DI.CT_ITS ---
SYMPTOMS/DIAGNOSIS: ALTERED MENTATION, RT SIDED WEAKNESS AND PAIN NONCONTRAST HEAD CT: Comparison is made with [id number]. No intracranial hemorrhage, mass or infarct is seen. The ventricles remain normal in size. No skull fracture is seen. The sinuses and mastoid air cells appear clear. IMPRESSION: Negative head CT.
--- NOTE | 2018-05-04 10:52 | W.ED.GENAD ---
Discharge Plan Discharge Details Chief Complaint: AMS/LOC Reason For Visit: LISA Admit Date/Time: 05/04/18 16:27 Admit Provider: Sandip Amador Attending Provider: Sandip Amador Primary Care Provider: Molly Pelayo ED Provider: Vinicio Padron Medical Decision Making 10:50 -- 47yo f with multiple medical problems including recent LISA, here with altered mentation, right sided weakness and pain. History limited as patient poor historian - unclear as to when weakness started. Exam limited as patient noting the entire right side of her body is hurting and worse with movement. No focal injuries on exam. No headache or neck stiffness. Appears dehydrated. Consider CVA - will CT head. Consider opioid vs benzodiazepine overdose. Naloxone 2 mg intranasal administered. Consider worsening renal failure. 12:10 -- Patient reassessed multiple times. She has not responded to naloxone noted affect seems more sleepy. Nursing unable to establish IV access. 2 attempts with ultrasound-guided access attempted by me and successful on second attempt left upper arm. 12:45 -- Creatinine elevated. BUN elevated. No urine sample for specimen as yet. 12:59 -- Plan for admission. Spoke with Dr. Amador - will place admission orders. 14:00 --ECG reviewed and interpreted by me: Sinus rhythm 78 bpm, T wave V2, QTC 437, nondiagnostic. CT of the head interpreted by radiology: No acute intracranial ab normality. No significant change when compared to prior study. Patient reassessed: pt more somnolent. Protecting ariway. High suspicion for benzo OD. IV line infiltrated. Central line rt femoral placed by me with US guidance for access. -- Patient arousable to verbal stimuli. Pain more focal right shoulder. Will above xray. 15:45 -- Spoke with Dr. Amador at bedside and updated re: recent course. He will be admitting to icu. HPI General Mode of arrival: EMS. Date/Time Provider Initiated Documentation: 05/04/18 10:50. Limitations to Documentation: altered mental status. Information obtained by: EMS. HPI Narrative: 47-year-old female with multiple medical problems including history of anxiety, depression, hypertension, renal stones, peptic ulcer disease, seizure disorder, substance abuse in remission, borderline personality disorder, recently seen and found to have acute renal injury, returns today with EMS with altered mental status, frequent falls, pain and weakness of her entire right side of her body. Patient is a poor historian. She states that she is taking medications as prescribed without any herbal supplements or illicit drug use. Patient notes a few days of weakness and frequent falls pain on her right side. No specific focal area of pain. Related Data Home Medications Medication Instructions Recorded Confirmed zonisamide [Zonegran] 100 mg PO BID #6 capsule 03/27/16 05/04/18 gabapentin 800 mg PO QID tab-cap 03/30/17 05/04/18 alprazolam [Xanax XR] 3 mg PO HS 04/07/17 05/04/18 prazosin 2 mg PO HS 04/07/17 05/04/18 venlafaxine 300 mg PO DAILY AM 04/07/17 05/04/18 zolpidem 5 mg PO HS 04/07/17 05/04/18 omeprazole 40 mg PO BID #60 tab-cap 04/14/17 05/04/18 clonidine HCl [Catapres] 0.2 mg PO BID #120 tab 12/21/17 05/04/18 losartan 50 mg PO DAILY 12/29/17 05/04/18 Previous Rx's Medication Instructions Recorded zonisamide [Zonegran] 100 mg PO BID #6 capsule 03/27/16 omeprazole 40 mg PO BID #60 tab-cap 04/14/17 clonidine HCl [Catapres] 0.2 mg PO BID #120 tab 12/21/17 Allergies Allergy/AdvReac Type Severity Reaction Status Date / Time ibuprofen Allergy Severe anaphylaxis Unverified 05/04/18 10:42 ketorolac tromethamine Allergy Severe rash/throat Unverified 05/04/18 10:42 [From Toradol] swelling Penicillins Allergy Severe anaphylaxis Unverified 05/04/18 10:42 amoxicillin trihydrate Allergy Mild Skin Rash Unverified 05/04/18 10:42 [From Augmentin] codeine [Codeine] Allergy Mild Skin Rash Unverified 05/04/18 10:42 hydromorphone [From Dilaudid] Allergy Mild Skin Rash Unverified 05/04/18 10:42 potassium clavulanate Allergy Mild Skin Rash Unverified 05/04/18 10:42 [From Augmentin] lithium [[place]] AdvReac Intermediate tremor Unverified 05/04/18 10:42 divalproex sodium AdvReac Mild Nausea Unverified 05/04/18 10:42 [From Depakote] General Stated Complaint: AMS/LOC NIKIA: 2 Review of Systems Review of Systems Unobtainable due to mental status Exam Const General: well developed and anxious Nutritional Appearance: obese Orientation: alert, awake, oriented to person, oriented to place and confused Limitations: altered mental status [place] Head: normocephalic and atraumatic General nose exam: external nose normal and nares normal Mouth: mucous membranes dry Throat: posterior oropharynx abnormal (dry) Eyes Conjunctivae: normal conjunctivae Sclera: normal sclerae Pupils: PERRL (3mm bilateral) EOM: EOM intact bilaterally Neck Neck: trachea midline and supple Resp Auscultation: clear to auscultation bilaterally, no rales, no rhonchi and no wheezes Cardio Jugular venous pressure: no JVD Rate: regular rate and not tachycardic Rhythm: regular rhythm GI Palpation: soft, not firm, no guarding, no masses, not rigid and nontender Skin General skin exam: no rashes or lesions noted Neuro General: oriented Patient Orientation: Person, Place and Confused, confused and other (slowed reponse and asleep, arousable to voice but groggy) Speech: speech normal Motor: other (strength on left normal, unable to assess RUE and RLE secondary to discomfort - seems weak ) Sensory Exam: no sensory deficits noted (all extremities) Extrem General: edema (trace edema all extremities) Psych Affect: anxious affect Course Vital Signs Temperature 36.3 C L 05/04/18 10:36 Pulse 94 H 05/04/18 10:36 Respiratory Rate 17 05/04/18 10:36 Blood Pressure 102/59 L 05/04/18 10:36 Pulse Oximetry 97 05/04/18 10:36 Temperature 36.3 C L 05/04/18 10:36 Temperature Source Skin 05/04/18 10:36 Pulse 94 H 05/04/18 10:36 Respiratory Rate 17 05/04/18 10:36 Blood Pressure 102/59 L 05/04/18 10:36 Blood Pressure Position Supine 05/04/18 10:36 Pulse Oximetry 97 05/04/18 10:36 Oxygen Delivery Method Room Air 05/04/18 10:36 Oxygen Flow Rate 0 05/04/18 10:36
--- NOTE | 2018-05-04 10:55 | ED.GENADUL_ITS ---
Discharge Plan Discharge Details Chief Complaint: AMS/LOC Reason For Visit: LISA Admit Date/Time: 05/04/18 16:27 Admit Provider: Sandip Amador Attending Provider: Sandip Amador Primary Care Provider: Molly Pelayo ED Provider: Vinicio Padron Medical Decision Making 10:50 -- 47yo f with multiple medical problems including recent LISA, here with altered mentation, right sided weakness and pain. History limited as patient poor historian - unclear as to when weakness started. Exam limited as patient noting the entire right side of her body is hurting and worse with movement. No focal injuries on exam. No headache or neck stiffness. Appears dehydrated. Consider CVA - will CT head. Consider opioid vs benzodiazepine overdose. Naloxone 2 mg intranasal administered. Consider worsening renal failure. 12:10 -- Patient reassessed multiple times. She has not responded to naloxone noted affect seems more sleepy. Nursing unable to establish IV access. 2 attempts with ultrasound-guided access attempted by me and successful on second attempt left upper arm. 12:45 -- Creatinine elevated. BUN elevated. No urine sample for specimen as yet. 12:59 -- Plan for admission. Spoke with Dr. Amador - will place admission orders. 14:00 --ECG reviewed and interpreted by me: Sinus rhythm 78 bpm, T wave V2, QTC 437, nondiagnostic. CT of the head interpreted by radiology: No acute intracranial ab normality. No significant change when compared to prior study. Patient reassessed: pt more somnolent. Protecting ariway. High suspicion for benzo OD. IV line infiltrated. Central line rt femoral placed by me with US guidance for access. -- Patient arousable to verbal stimuli. Pain more focal right shoulder. Will above xray. 15:45 -- Spoke with Dr. Amador at bedside and updated re: recent course. He will be admitting to icu. HPI General Mode of arrival: EMS . Date/Time Provider Initiated Documentation: 05/04/18 10:50 . Limitations to Documentation: altered mental status . Information obtained by: EMS . HPI Narrative: 47-year-old female with multiple medical problems including history of anxiety, depression, hypertension, renal stones, peptic ulcer disease , seizure disorder, substance abuse in remission, borderline personality disorder, recently seen and found to have acute renal injury, returns today with EMS with altered mental status, frequent falls, pain and weakness of her entire right side of her body. Patient is a poor historian. She states that she is taking medications as prescribed without any herbal supplements or illicit drug use. Patient notes a few days of weakness and frequent falls pain on her right side. No specific focal area of pain. Related Data Home Medications Medication Instructions Recorded Confirmed zonisamide [Zonegran] 100 mg PO BID #6 capsule 03/27/16 05/04/18 gabapentin 800 mg PO QID tab-cap 03/30/17 05/04/18 alprazolam [Xanax XR] 3 mg PO HS 04/07/17 05/04/18 prazosin 2 mg PO HS 04/07/17 05/04/18 venlafaxine 300 mg PO DAILY AM 04/07/17 05/04/18 zolpidem 5 mg PO HS 04/07/17 05/04/18 omeprazole 40 mg PO BID #60 tab-cap 04/14/17 05/04/18 clonidine HCl [Catapres] 0.2 mg PO BID #120 tab 12/21/17 05/04/18 losartan 50 mg PO DAILY 12/29/17 05/04/18 Previous Rx's Medication Instructions Recorded zonisamide [Zonegran] 100 mg PO BID #6 capsule 03/27/16 omeprazole 40 mg PO BID #60 tab-cap 04/14/17 clonidine HCl [Catapres] 0.2 mg PO BID #120 tab 12/21/17 Allergies Allergy/AdvReac Type Severity Reaction Status Date / Time ibuprofen Allergy Severe anaphylaxis Unverified 05/04/18 10:42 ketorolac tromethamine Allergy Severe rash/throat Unverified 05/04/18 10:42 [From Toradol] swelling Penicillins Allergy Severe anaphylaxis Unverified 05/04/18 10:42 amoxicillin trihydrate Allergy Mild Skin Rash Unverified 05/04/18 10:42 [From Augmentin] codeine [Codeine] Allergy Mild Skin Rash Unverified 05/04/18 10:42 hydromorphone [From Dilaudid] Allergy Mild Skin Rash Unverified 05/04/18 10:42 potassium clavulanate Allergy Mild Skin Rash Unverified 05/04/18 10:42 [From Augmentin] lithium [[place]] AdvReac Intermediate tremor Unverified 05/04/18 10:42 divalproex sodium AdvReac Mild Nausea Unverified 05/04/18 10:42 [From Depakote] General Stated Complaint: AMS/LOC NIKIA: 2 Review of Systems Review of Systems Unobtainable due to mental status Exam Const General: well developed and anxious Nutritional Appearance: obese Orientation: alert, awake, oriented to person, oriented to place and confused Limitations: altered mental status HENND Head: normocephalic and atraumatic General nose exam: external nose normal and nares normal Mouth: mucous membranes dry Throat: posterior oropharynx abnormal (dry) Eyes Conjunctivae: normal conjunctivae Sclera: normal sclerae Pupils: PERRL (3mm bilateral) EOM: EOM intact bilaterally Neck Neck: trachea midline and supple Resp Auscultation: clear to auscultation bilaterally, no rales, no rhonchi and no wheezes Cardio Jugular venous pressure: no JVD Rate: regular rate and not tachycardic Rhythm: regular rhythm GI Palpation: soft, not firm, no guarding, no masses, not rigid and nontender Skin General skin exam: no rashes or lesions noted Neuro General: oriented Patient Orientation: Person, Place and Confused, confused and other (slowed reponse and asleep, arousable to voice but groggy) Speech: speech normal Motor: other (strength on left normal, unable to assess RUE and RLE secondary to discomfort - seems weak ) Sensory Exam: no sensory deficits noted (all extremities) Extrem General: edema (trace edema all extremities) Psych Affect: anxious affect Course Vital Signs Temperature 36.3 C L 05/04/18 10:36 Pulse 94 H 05/04/18 10:36 Respiratory Rate 17 05/04/18 10:36 Blood Pressure 102/59 L 05/04/18 10:36 Pulse Oximetry 97 05/04/18 10:36 Temperature 36.3 C L 05/04/18 10:36 Temperature Source Skin 05/04/18 10:36 Pulse 94 H 05/04/18 10:36 Respiratory Rate 17 05/04/18 10:36 Blood Pressure 102/59 L 05/04/18 10:36 Blood Pressure Position Supine 05/04/18 10:36 Pulse Oximetry 97 05/04/18 10:36 Oxygen Delivery Method Room Air 05/04/18 10:36 Oxygen Flow Rate 0 05/04/18 10:36
--- NOTE | 2018-05-04 11:00 | NUR.NOTE ---
This RN attempted PIV access without success. Pt. is known very difficult stick. Plan for MD ultrasound placement.
--- NOTE | 2018-05-04 11:10 | NUR.NOTE ---
Per RT she was having a hard time waking pt. up with 02 sat 89%. When awake pt. insisting that she can not breath, is speaking, 02 sat mid 90s. MD Padron administered 2mg intra-nasal narcan.
--- NOTE | 2018-05-04 11:18 | NUR.NOTE ---
Pt. continues to fall asleep, placed on 2L NC. MD Padron aware. Of note pupils prior to narcan 2-3 B/L PERRLA, remain 2-3 b/l
--- NOTE | 2018-05-04 12:00 | NUR.NOTE ---
MD Padron is at the bedside attempting IV access.
[2018-05-04 12:11] LABS: Abs Immature Grans 0.06 k/cumm (0.0-0.09); Absolute Basophil Count 0.04 k/cumm (0.0-0.2); Absolute Eosinophil Count 0.16 k/cumm (0.0-0.7); Basophils % 0.2; Eosinophils % 0.9; HCT 36.1 % (36.0-46.0); HGB 12.2 g/dL (12.0-15.5); Immature Grans % 0.3; Lymphocytes % 7.2; Mean Corp. HGB Concentration 33.8 g/dL (32.0-36.0); Mean Corpuscular Hemoglobin 31.3 pg (27.0-33.0); Mean Corpuscular Volume 92.6 fL (80-95); Mean Platelet Volume 8.7 fL (8.0-11.0); Neutrophils % 84.4; Platelet Count 368 x1000/uL (130-400); RBC Distribution Width 13.4 % (11.7-14.6); White Blood Cell Count 17.81 k/cumm (4.4-10.8)
[2018-05-04 12:12] LABS: Absolute Lymphocyte Count 1.28 k/cumm (1.2-3.4); Absolute Monocyte Count 1.25 k/cumm (0.11-0.7); Absolute Neutrophil Count 15.03 k/cumm (1.2-6.7)
[2018-05-04 12:29] LABS: ALT 47 U/L (12-78); AST 37 U/L (15-37); Albumin 3.9 g/dL (3.4-5.0); Alkaline Phosphatase 148 U/L (46-116); Anion Gap 15.8 mmol/L (3-11); BUN 47 mg/dL (7-18); Bilirubin, Total 0.3 mg/dL (0.2-1.0); CO2 22.2 mmol/L (21.0-32.0); Calcium 8.5 mg/dL (8.5-10.1); Chloride 97 mmol/L (98-107); Estimated GFR 9.53 (mL/min/1.73m2); Glucose 109 mg/dL (70-100); Magnesium 1.9 mg/dL (1.8-2.4); Potassium 3.4 mmol/L (3.5-5.1); Sodium 135 mmol/L (136-145); Total Protein 7.8 g/dL (6.4-8.2)
[2018-05-04 12:31] LABS: CREATININE 4.85 mg/dL (0.55-1.02); Troponin I < 0.02 ng/mL (0.00-0.06)
--- NOTE | 2018-05-04 12:34 | NUR.NOTE ---
Pt. taken to CT scan by this RN, pt. continues to be somnolent. Placed on end tital CO2 monitoring. pupils 2-3 PERRLA. Still no output from catheter. Results pending.
--- NOTE | 2018-05-04 12:37 | DI.RAD_ITS ---
SYMPTOMS/DIAGNOSIS: LEUKOCYTOSIS, CONFUSION PORTABLE CHEST: Comparison is made with [id number]. The heart is again noted to be enlarged. Leads overlie the chest. There is respiratory motion. The lungs are grossly clear. IMPRESSION: Cardiomegaly. No acute abnormality.
--- NOTE | 2018-05-04 13:01 | DI.VRAD_ITS ---
EXAM: CT Head Without Intravenous Contrast EXAM DATE/TIME: 05/04/2018 12:29 PM CLINICAL HISTORY: 47 years old, female; Signs and symptoms; Altered mental status/memory loss TECHNIQUE: Axial computed tomography images of the head/brain without intravenous contrast. Coronal and sagittal reformatted images were created and reviewed. COMPARISON: CT HEAD WO 04/28/2018 4:12 PM FINDINGS: Brain: Normal. No hemorrhage. No significant white matter disease. No edema. Ventricles: Normal. No ventriculomegaly. Bones/joints: Normal. No acute fracture. Sinuses: Normal as visualized. No acute sinusitis. Mastoid air cells: Normal as visualized. No mastoid effusion. Soft tissues: Normal. IMPRESSION: No acute intracranial abnormality. No significant change when compared to the prior study. Dictated and Authenticated by: Ryley Arriaga MD. Ordering:PATY VIDAL MD
[2018-05-04 13:24] LABS: Lactate-non-spesis 1.3 mmol/L (0.6-1.4)
--- NOTE | 2018-05-04 13:27 | NUR.NOTE ---
PIV in left ac infiltrated after this RN placed fluids on IV pump at rate of 999, significant infiltrate. warm compress applied. Pt. remains somnolent, tolerating phlebotomy in her right foot, previously pt. was complaining of significant pain on right arm and right leg. End tital remains 30-37, pupils 3-2 PERRLA. MD aware, plan to obtain IV access, place benavidez cather (no urine out put in straight cath still). Will monitor.
[2018-05-04] MEDS: Normal Saline 1,000 ML 1000 ML IV ×2 (14:00→14:15)
--- NOTE | 2018-05-04 14:14 | NUR.NOTE ---
central line placed in right groin by MD Padron, pt. remained somonolent throughout. Yang catheter placed by this RN. Pt. now arousable to sternal rub, pt. is agitated as before, does follow commands and move all extremities.
[2018-05-04 14:48] LABS: Bilirubin Negative (Negative); Blood Large (Negative); Clarity Cloudy; Glucose Negative (Negative); Ketones Trace mg/dL (Negative); Leukocyte Esterase Negative (Negative); Nitrite Negative (Negative); Urobilinogen 0.2 EU/dL (Up TO 0.2); pH 5.5 (5-8)
[2018-05-04 15:01] LABS: Bacteria Moderate HPF (Negative); Crystals Moderate Amorphous HPF (Negative); Epithelial Cells Many HPF (Negative); RBC >50 (0-2); WBC 0-2 HPF (0-5)
[2018-05-04 15:02] LABS: C & S Indicated? No/Sq. Contamination; Casts 0-2 Hyaline LPF (Negative); Mucus Trace (Negative)
[2018-05-04] MEDS: Normal Saline 1,000 ML 150 ML IV ×2 (15:11→17:30)
[2018-05-04 15:16] LABS: Creatinine,Urine 141.08 mg/dL
[2018-05-04 15:22] LABS: Sodium, Urine 30 mmol/L
--- NOTE | 2018-05-04 16:06 | NUR.NOTE ---
Pt. arousable to sternal rub, end tital remains greater than 30. Pt. is in soft wrist restraints for safety regarding central line placement.
[2018-05-04] MEDS: Normal Saline Flush 10 ML SYR IVP (17:23)
--- NOTE | 2018-05-04 18:16 | HPE_ITS ---
Date of service: 05/04/18 Time of Service: 18:09 Assessment and Plan (1) Acute kidney injury (nontraumatic): Current visit: Yes Status: Acute Evidence of a mild increase in creatinine one week ago, now with significant elevation of unknown etiology. Postrenal factors eliminated with insertion of Yang Catheterization - Patient is making urine and with IVF's appears to have good output. Possibility for prerenal factors, with dehydration a possibility as it is uncertain how long the patient has been obtunded and with potentially poor PO intake - also on daily ARB with Losartan. However, BUN to Creatinine ratio is not >20. Will check a FENa, Maria M, and Uosms. Also possibility for intrinsic renal failure with ATN vs. AIN. However, Urine without any WBCs or WBC casts, and no evidence of urine eos. Will await results of FENa and UOsms. For tonight will hold ARB and patient's antihypertensive regimen to allow for adequate flow and pressure to the kidneys as patient is currently mildly hypotensive. Will also hold patient's gabapentin, Ambien (in setting of somnolence), and PPI. Monitor renal function carefully, avoid nephrotoxins, and renally dose medications when appropriate. (2) Altered mental status: Current visit: Yes Status: Acute Unknown etiology but patient with a long history of overdose on both illicit drugs and presumably medications. Currently appears like overdose on a sedative such as her benzo is a possibility - as patient is protecting her airway and responsive did not attempt flumazenil. Will benefit from close monitoring at the ICU level. Patient is not hypoglycemic, and despite LISA does not appear to be uremic by labs. LFTs are normal. As previously stated patient may have overdosed, and a Urine Drug Screen has been sent. No evidence of ACS by labs, or CVA or space occupying lesion by CT Head. Electrolytes are remarkably stable. Marked leukocytosis which may be reactive, with a urinalysis and CXR negative for evidence of infection and patient is afebrile. Will monitor closely, with a low threshold for intabation if needed. (3) Hypertension: Current visit: Yes Status: Chronic Holding Prazosin, ARB, and Clonidine as above. (4) Drug abuse and dependence: Current visit: Yes Status: Chronic (5) Peptic ulcer disease: Current visit: Yes Status: Chronic Holding PPI as above. Initiate renally dosed H2 kaya. History of Present Illness Chief Complaint: Altered Mental Status Narrative: 47 year old woman with a prior history of Bipolar disorder, polysubstance abuse with overdose, and potential intentional overdose of prescribed medications presented to [facility] Emergency Department with noted altered mental status and LISA. Ms. Olsen has a prior medical history of Hypertension, Seizure disorder, and obesity. She has a psychiatric history of Bipolar Disorder, Borderline personality disorder, and polysubstance abuse with prior overdose history on both illicit drugs and medications, potentially purposeful. In December of this year she was admitted to the hospital with altered mental status and profound hypotension requiring ICU level care with pressor support and IVF resuscitation - thought secondary to purposeful overdose of her own antihypertensive medications. She is chronically followed by mental health. The patient is a frequent visitor to the ED, and one week ago she presented with complaint of swelling in her hands and face. Her work-up was essentially unremarkarkable except for evidence of an acute kidney injury, with a creatinine up from her baseline of 0.7 to a value of 1.25. The patient has had multiple prior elevated creatinine values. She was administered a dose of lasix and discharged home. Today Ms. Olsen presents with an altered mental status, noted to be in significant acute kidney injury with a creatinine of 4.85. She does not however have hyperkalemia, and her BUN is elevated at 47. Her white count was significantly elevated at 17, with evidence of a left shift but no bandemia. Lactate and troponin were negative, and her CXR and CT of the head were without acute abnormalities. The patient failed to respond to Naloxone, but consideration was given to a potential benzo overdose. She was found to be arousable and protecting her airway, and following insertion of a Triple Lumen Catheter the patient was referred for admission to the ICU. Review of Systems Review of Systems Unobtainable due to mental condition (Patient is obtunded) Meds Home Medications Medication Instructions Recorded Confirmed Type zonisamide [Zonegran] 100 mg PO BID #6 capsule 03/27/16 05/04/18 Rx gabapentin 800 mg PO QID tab-cap 03/30/17 05/04/18 History alprazolam [Xanax XR] 3 mg PO HS 04/07/17 05/04/18 History prazosin 2 mg PO HS 04/07/17 05/04/18 History venlafaxine 300 mg PO DAILY AM 04/07/17 05/04/18 History zolpidem 5 mg PO HS 04/07/17 05/04/18 History omeprazole 40 mg PO BID #60 tab-cap 04/14/17 05/04/18 Rx clonidine HCl [Catapres] 0.2 mg PO BID #120 tab 12/21/17 05/04/18 Rx losartan 50 mg PO DAILY 12/29/17 05/04/18 History Allergies Allergy/AdvReac Type Severity Reaction Status Date / Time ibuprofen Allergy Severe anaphylaxis Unverified 05/04/18 10:42 ketorolac tromethamine Allergy Severe rash/throat Unverified 05/04/18 10:42 [From Toradol] swelling Penicillins Allergy Severe anaphylaxis Unverified 05/04/18 10:42 amoxicillin trihydrate Allergy Mild Skin Rash Unverified 05/04/18 10:42 [From Augmentin] codeine [Codeine] Allergy Mild Skin Rash Unverified 05/04/18 10:42 hydromorphone [From Dilaudid] Allergy Mild Skin Rash Unverified 05/04/18 10:42 potassium clavulanate Allergy Mild Skin Rash Unverified 05/04/18 10:42 [From Augmentin] lithium [[place]] AdvReac Intermediate tremor Unverified 05/04/18 10:42 divalproex sodium AdvReac Mild Nausea Unverified 05/04/18 10:42 [From Depakote] Exam Narrative Exam Narrative: General: Patient appears somnolent and obtunded, but does arouse with both verbal and physical stimuli, NAD. When awake complaining of right UE and right shoulder pain. Neck: Supple CV: Regular, nontachycardic, S1S2, No rubs, murmurs, or gallops. Pulmonary: Clear to auscultation bilaterally, no crackles, wheezing, or rhonchi on limited anterior and lateral exam, and limited also by body habitus. Abdomen: + Bowel Sounds, soft, nontender, nondistended Vascular: No significant lower extremity edema Skin: Right sided inguinal TLC noted. Psych: Unable to assess Results Imaging Chest x-ray: report reviewed Additional studies: Exam(s) a RAD:XR portable chest AP SYMPTOMS/DIAGNOSIS: LEUKOCYTOSIS, CONFUSION PORTABLE CHEST: Comparison is made with [id number]. The heart is again noted to be enlarged. Leads overlie the chest. There is respiratory motion. The lungs are grossly clear. IMPRESSION: Cardiomegaly. No acute abnormality. Exam(s) EXAM: CT Head Without Intravenous Contrast EXAM DATE/TIME: 05/04/2018 12:29 PM CLINICAL HISTORY: 47 years old, female; Signs and symptoms; Altered mental status/memory loss TECHNIQUE: Axial computed tomography images of the head/brain without intravenous contrast. Coronal and sagittal reformatted images were created and reviewed. COMPARISON: CT HEAD WO 04/28/2018 4:12 PM FINDINGS: Brain: Normal. No hemorrhage. No significant white matter disease. No edema. Ventricles: Normal. No ventriculomegaly. Bones/joints: Normal. No acute fracture. Sinuses: Normal as visualized. No acute sinusitis. Mastoid air cells: Normal as visualized. No mastoid effusion. Soft tissues: Normal. IMPRESSION: No acute intracranial abnormality. No significant change when compared to the prior study. Labs : 05/04/18 12:00 05/04/18 12:00 Laboratory Results - last 24 hr 05/04/18 05/04/18 05/04/18 12:00 12:00 13:10 WBC 17.81 H RBC 3.90 L Hgb 12.2 Hct 36.1 MCV 92.6 MCH 31.3 MCHC 33.8 RDW 13.4 Plt Count 368 MPV 8.7 Immature Gran % 0.3 Neutrophils % 84.4 Lymphocytes % 7.2 Monocytes % 7.0 Eosinophils % 0.9 Basophils % 0.2 Absolute Neutrophils 15.03 H Absolute Lymphocytes 1.28 Absolute Monocytes 1.25 H Absolute Eosinophils 0.16 Absolute Basophils 0.04 Sodium 135 L Potassium 3.4 L Chloride 97 L Carbon Dioxide 22.2 Anion Gap 15.8 H BUN 47 H Creatinine 4.85 H* Estimated GFR/1.73 m2 9.53 Glucose 109 H Lactate 1.3 Calcium 8.5 Magnesium 1.9 Total Bilirubin 0.3 AST 37 ALT 47 Alkaline Phosphatase 148 H Troponin I < 0.02 Total Protein 7.8 Albumin 3.9 Urine Color Urine Clarity Urine pH Ur Specific [place] Urine Protein Urine Ketones Urine Blood Urine Nitrite Urine Bilirubin Urine Urobilinogen Ur Leukocyte Esterase Urine RBC Urine WBC Ur Epithelial Cells Urine Crystals Urine Bacteria Urine Casts Urine Mucus Ur Culture Indicated? Ur Random Sodium Urine Creatinine Urine Glucose 05/04/18 05/04/18 05/04/18 14:25 14:25 14:25 WBC RBC Hgb Hct MCV MCH MCHC RDW Plt Count MPV Immature Gran % Neutrophils % Lymphocytes % Monocytes % Eosinophils % Basophils % Absolute Neutrophils Absolute Lymphocytes Absolute Monocytes Absolute Eosinophils Absolute Basophils Sodium Potassium Chloride Carbon Dioxide Anion Gap BUN Creatinine Estimated GFR/1.73 m2 Glucose Lactate Calcium Magnesium Total Bilirubin AST ALT Alkaline Phosphatase Troponin I Total Protein Albumin Urine Color Yellow Urine Clarity Cloudy Urine pH 5.5 Ur Specific [place] 1.020 Urine Protein 100 H Urine Ketones Trace H Urine Blood Large H Urine Nitrite Negative Urine Bilirubin Negative Urine Urobilinogen 0.2 Ur Leukocyte Esterase Negative Urine RBC >50 H Urine WBC 0-2 Ur Epithelial Cells Many Urine Crystals Moderate amorphous Urine Bacteria Moderate Urine Casts 0-2 hyaline Urine Mucus Trace Ur Culture Indicated? No/sq. contamination Ur Random Sodium 30 Urine Creatinine 141.08 Urine Glucose Negative Last Vital Signs Temp 36.3 C L 05/04/18 10:36 Pulse 82 05/04/18 15:33 Resp 7 L 05/04/18 16:00 BP 137/60 05/04/18 15:33 Pulse Ox 100 05/04/18 16:45
[2018-05-04 19:42] LABS: *AMPHETAMINES SCREEN URINE Negative (Negative); *BARBITURATES SCREEN URINE Negative (Negative); *BENZODIAZEPINES SCREEN URINE POSITIVE (Negative); Cannabinoids THC Negative (Negative); Cocaine Screen,Urine Negative (Negative); METHADONE URINE SCREEN Negative (Negative); OPIATES URINE SCREEN Negative (Negative); Tricyclic Antidepressants Negative (Negative)
[2018-05-04] MEDS: Heparin 5,000 UNITS/ML VIAL 5000 UNITS SC (19:47)
[2018-05-04] MEDS: Acetaminophen 325 MG TAB PO (19:48)
[2018-05-04] MEDS: Zonisamide 100 MG CAP PO (19:48)
[2018-05-04 21:33] LABS: Osmolality, Urine 219 mos/kg (150-1150)
[2018-05-05] VITALS (66 sets, daily range): BP systolic 114–202; BP diastolic 64–101; PULSE 82–114; RESP 7–28; TEMP 36.2–37.9; O2SAT 90–98
--- NOTE | 2018-05-05 | DI.RAD_ITS ---
SYMPTOM/DIAGNOSIS: PAIN RIGHT SHOULDER: Comparison is made with 12/17/17. An old fracture deformity is again noted involving the proximal humerus and distal clavicle. No acute fracture or dislocation is seem. RIGHT HUMERUS: There are old fracture deformities of the distal clavicle and proximal humerus. No acute fractures are identified. The elbow is unremarkable as visualized.
[2018-05-05] MEDS: Normal Saline 1,000 ML 200 ML IV ×5 (00:01→22:22)
[2018-05-05] MEDS: Acetaminophen 325 MG TAB PO ×2 (01:01→06:11)
[2018-05-05] MEDS: Normal Saline Flush 10 ML SYR IVP (06:15)
[2018-05-05 07:14] LABS: Abs Immature Grans 0.03 k/cumm (0.0-0.09); Absolute Basophil Count 0.03 k/cumm (0.0-0.2); Absolute Lymphocyte Count 1.77 k/cumm (1.2-3.4); Absolute Neutrophil Count 10.95 k/cumm (1.2-6.7); Basophils % 0.2; Eosinophils % 1.3; HCT 36.2 % (36.0-46.0); HGB 12.2 g/dL (12.0-15.5); Immature Grans % 0.2; Lymphocytes % 12.5; Mean Corp. HGB Concentration 33.7 g/dL (32.0-36.0); Mean Corpuscular Hemoglobin 31.3 pg (27.0-33.0); Mean Corpuscular Volume 92.8 fL (80-95); Mean Platelet Volume 9.4 fL (8.0-11.0); Monocytes % 8.5; Neutrophils % 77.3; Platelet Count 403 x1000/uL (130-400); RBC Distribution Width 13.2 % (11.7-14.6); White Blood Cell Count 14.17 k/cumm (4.4-10.8)
[2018-05-05 07:24] LABS: Anion Gap 15.1 mmol/L (3-11); BUN 37 mg/dL (7-18); CO2 21.9 mmol/L (21.0-32.0); CREATININE 2.17 mg/dL (0.55-1.02); Calcium 8.3 mg/dL (8.5-10.1); Chloride 105 mmol/L (98-107); Glucose 111 mg/dL (70-100); Potassium 3.2 mmol/L (3.5-5.1); Sodium 142 mmol/L (136-145)
[2018-05-05 07:26] LABS: Absolute Eosinophil Count 0.18 k/cumm (0.0-0.7)
[2018-05-05] MEDS: Zonisamide 100 MG CAP PO ×2 (09:34→19:49)
[2018-05-05] MEDS: Heparin 5,000 UNITS/ML VIAL 5000 UNITS SC ×2 (09:35→19:49)
[2018-05-05] MEDS: Potassium Chloride 20 MEQ TABCR 40 MEQ PO (09:35)
[2018-05-05] MEDS: Magnesium Oxide 400 MG TAB PO (09:35)
--- NOTE | 2018-05-05 09:55 | DI.US_ITS ---
SYMPTOM/DIAGNOSIS: LISA RENAL ULTRASOUND: Comparison is made with CT of the abdomen and pelvis dated 12/12/17. The right kidney measures 12.4 cm. in length. The left kidney measures 12.6 cm. in length. The parenchymal thickness appears normal. No hydronephrosis or perinephric collection is seen. There are a few echogenic reflectors bilaterally which could represent artifacts versus tiny non obstructing stones or vascular calcifications. The prevoid bladder volume measured 287 cc's. The postvoid residual is 19 cc's. Both ureteral jets were identified. IMPRESSION: No evidence of hydronephrosis. Question of tiny stones versus artifacts bilaterally.
--- NOTE | 2018-05-05 10:27 | PHARADMIT ---
Addendum entered by Cecilio Gan III 05/06/18 12:35: Pharmacy Note Subjective LISA resolving, BP elevated, MD started home meds minus Losartan. Objective BP-175/100, VS-OK Pain:01/15 K+3.2 SCr-1.14 WBC-8.93 H&H-Plts-OK Wgt-108.3 kg No BM yet Assessment Clonidine restarted for HBP, IV fluids decreased, Plan Home BP meds and PPi started, watch SCr and weight. Original Note: Admission Pharmacy Clinical Review LISA Code Status Full Code Current Weight 104.9 kg Renally Cleared and Narrow Therapeutic Index Meds CRCL ~24ML/MIN QTc Value / Action Taken 437 BP Control, Fever 149/72 AFEBRILE Electrolytes reviewed K 3.2(Supplement ordered) DVT Prophylaxis heparin subq Opiate Usage / Scheduled Bowel Regimen Ordered no/prn Plt/SCr for Heparin / Enoxaparin 403/2.17(down from 4.85) INR for Warfarin na H/H stable, WBC/Bands 12.2/36.2 wbc 14.17 Antibiotic appropriateness na Cultures and Sensitivities BC pending Surgical ABX d/c within 24 hr na DM control / Insulin Dosing na Heart Failure (Check EF%) (JOMAR's, B-Block, Diuretics) na IV to PO Switch IVF, PO meds Home Meds Reviewed Md holding many home meds due to somnolence and LISA, some meds to be renally dosed when restarted Home Meds Not Ordered gabapentin 800 mg PO QID tab-cap 03/30/17 [History Confirmed 05/04/18] alprazolam [Xanax XR] 3 mg PO HS 04/07/17 [History Confirmed 05/04/18] prazosin 2 mg PO HS 04/07/17 [History Confirmed 05/04/18] venlafaxine 300 mg PO DAILY AM 04/07/17 [History Confirmed 05/04/18] zolpidem 5 mg PO HS 04/07/17 [History Confirmed 05/04/18] omeprazole 40 mg PO BID #60 tab-cap 04/14/17 [Rx Confirmed 05/04/18] clonidine HCl [Catapres] 0.2 mg PO BID #120 tab 12/21/17 losartan 50 mg PO DAILY 12/29/17 [History Confirmed 05/04/18] Comments
--- NOTE | 2018-05-05 10:39 | PDOC.CMIN ---
Care Management Initial Assess REASON FOR HOSPITALIZATION:: LISA PAST MEDICAL HISTORY/PAST SURGICAL HISTORY:: Schizophrenia, depression, bipolar disorder, SI, borderline personality disorder, hypertension, drug abuse and dependence; previous drug overdoses, anxiety, seizure disorders, peptic ulcer disease, kiney stones, HTN, UTI's, RLS, right should dislocation, hysterectomy, cholecystectomy, appendectomy. From H&P: Hypertension, Seizure disorder, and obesity. She has a psychiatric history of Bipolar Disorder, Borderline personality disorder, and polysubstance abuse with prior overdose history on both illicit drugs and medications, potentially purposeful. In December of this year she was admitted to the hospital with altered mental status and profound hypotension requiring ICU level care with pressor support and IVF resuscitation - thought secondary to purposeful overdose of her own antihypertensive medications. She is chronically followed by mental health. The patient is a frequent visitor to the ED, and one week ago she presented with complaint of swelling in her hands and face. Her work-up was essentially unremarkarkable except for evidence of an acute kidney injury, with a creatinine up from her baseline of 0.7 to a value of 1.25. The patient has had multiple prior elevated creatinine values. She was administered a dose of lasix and discharged home. PREVIOUS FUNCTIONAL STATUS/SOCIAL/FAMILY SUPPORTS:: Pilar has a sister, Deisy in [place] listed as her Next of Kin as well as a daughter; Lavern in [place], [place]. Pilar reports she resides in an apartment in [facility] with a female roomate; Carole who assists some with ADLs and transportation. She has a long history of mental health and substance abuse issues. CURRENT FUNCTIONAL STATUS:: Pilar is lying in bed when meets with her. She processes Carole's experience of seeing her struggling in the home setting recently and requiring multiple EMS transports to hospital and reports how triggering this can be. Pilar shares that if she had not had altered mental status she would not have agreed to [facility] admission as she feels the providers do not care for her; provided space and time for Pilar to process her feelings and opinions and provided patient education around outlets for feedback, and support through CM as needed. ADVANCE DIRECTIVES:: None on file at [facility]. Has patient been provided with information about the portal?: No Did the patient sign up for the portal?: No CODE STATUS:: Full Code INSURANCE COVERAGE / FINANCIAL ISSUES:: Medicaid CURRENT HOME/COMMUNITY SERVICES/EQUIPMENT:: RCT, Neurology, AMMONIA REFRIGERATION WORKER program at [facility] including CM, Medication management and MH support. PRIMARY CARE PHYSICIAN:: Molly Pelayo POTENTIAL DISCHARGE NEEDS:: Follow up appointments with community providers, communication with [facility], MD notification of patient's reported previous provider experience at Pilar's request. PATIENT/FAMILY EDUCATION NEEDS:: Review of policy, discharge instructions, discuss self care needs upon discharge including reviewing community based services supports and Ask Me [employer]. ANTICIPATED BARRIERS TO DISCHARGE:: Prior AMA departures. TRANSPORTATION:: RCT, AMMONIA REFRIGERATION WORKER or with private support person. PLAN:: CM spoke with Aarti Morales; AMMONIA REFRIGERATION WORKER point person who reports Pilar has medication management through [facility] along with daily med drops. Aarti Morales agreed to fax current medication list to this residential mortgage underwriter-who provided to MD for review. Aarti Morales also shared that Pilar has a follow up appointment with Dr. Pelayo scheduled for tomorrow as well. CM will continue to monitor clinical progress and support discharge planning considerations.
--- NOTE | 2018-05-05 10:51 | INITIAL_ITS ---
Care Management Initial Assess REASON FOR HOSPITALIZATION:: LISA PAST MEDICAL HISTORY/PAST SURGICAL HISTORY:: Schizophrenia, depression, bipolar disorder, SI, borderline personality disorder, hypertension, drug abuse and dependence; previous drug overdoses, anxiety, seizure disorders, peptic ulcer disease, kiney stones, HTN, UTI's, RLS, right should dislocation, hysterectomy, cholecystectomy, appendectomy. From H&P: Hypertension, Seizure disorder, and obesity. She has a psychiatric history of Bipolar Disorder, Borderline personality disorder, and polysubstance abuse with prior overdose history on both illicit drugs and medications, potentially purposeful. In December of this year she was admitted to the hospital with altered mental status and profound hypotension requiring ICU level care with pressor support and IVF resuscitation - thought secondary to purposeful overdose of her own antihypertensive medications. She is chronically followed by mental health. The patient is a frequent visitor to the ED, and one week ago she presented with complaint of swelling in her hands and face. Her work-up was essentially unremarkarkable except for evidence of an acute kidney injury, with a creatinine up from her baseline of 0.7 to a value of 1.25. The patient has had multiple prior elevated creatinine values. She was administered a dose of lasix and discharged home. PREVIOUS FUNCTIONAL STATUS/SOCIAL/FAMILY SUPPORTS:: Pilar has a sister, Deisy in [place] listed as her Next of Kin as well as a daughter; Lavern in [place], [place]. Pilar reports she resides in an apartment in [facility] with a female roomate; Carole who assists some with ADLs and transportation. She has a long history of mental health and substance abuse issues. CURRENT FUNCTIONAL STATUS:: Pilar is lying in bed when meets with her. She processes Carole's experience of seeing her struggling in the home setting recently and requiring multiple EMS transports to hospital and reports how triggering this can be. Pilar shares that if she had not had altered mental status she would not have agreed to [facility] admission as she feels the providers do not care for her; provided space and time for Pilar to process her feelings and opinions and provided patient education around outlets for feedback , and support through CM as needed. ADVANCE DIRECTIVES:: None on file at [facility]. Has patient been provided with information about the portal?: No Did the patient sign up for the portal?: No CODE STATUS:: Full Code INSURANCE COVERAGE / FINANCIAL ISSUES:: Medicaid CURRENT HOME/COMMUNITY SERVICES/EQUIPMENT:: RCT, Neurology, MANAGER OF DISTRIBUTION program at [facility] including CM, Medication management and MH support. PRIMARY CARE PHYSICIAN:: Molly Pelayo POTENTIAL DISCHARGE NEEDS:: Follow up appointments with community providers, communication with [facility], MD notification of patient's reported previous provider experience at Pilar's request. PATIENT/FAMILY EDUCATION NEEDS:: Review of policy, discharge instructions, discuss self care needs upon discharge including reviewing community based services supports and Ask Me Three. ANTICIPATED BARRIERS TO DISCHARGE:: Prior AMA departures. TRANSPORTATION:: RCT, MANAGER OF DISTRIBUTION or with private support person. PLAN:: CM spoke with Aarti Morales; MANAGER OF DISTRIBUTION point person who reports Pilar has medication management through [facility] along with daily med drops. Aarti Morales agreed to fax current medication list to this card writer hand-who provided to MD for review. Aarti Morales also shared that Pilar has a follow up appointment with Dr. Pelayo scheduled for tomorrow as well. CM will continue to monitor clinical progress and support discharge planning considerations.
[2018-05-05] MEDS: ACETAMINOPHEN 1,000 MG/100 ML BTL 400 MG IVPB ×2 (11:10→19:48)
--- NOTE | 2018-05-05 12:58 | PGE_ITS ---
Date of Service Date of service: 05/05/18 Time of Service: 12:54 Assessment and Plan (1) Acute kidney injury (nontraumatic): Current visit: Yes Status: Acute Evidence of a mild increase in creatinine one week ago, presented with significant elevation of unknown etiology. Postrenal factors eliminated with insertion of Benavidez Catheterization - Patient is making urine and with IVF's appears to have good output. Potentially prerenal, with dehydration a possibility as it is uncertain how long the patient was obtunded and with potentially poor PO intake - also on daily ARB with Losartan. Patient does report poor PO intake due to some nausea and vomiting at home. FeNa <1%, but BUN to Creatinine ratio is <20, Maria M is >20, and Uosm is <500. Also considered possibility for intrinsic renal failure with ATN vs. AIN as part of differential. For now will continue to hold ARB. As patient is now hypertensive, with SBP in the 180's will reinitiate Clonidine. Will also hold patient's gabapentin, Ambien (in setting of somnolence), and PPI. Monitor renal function carefully, avoid nephrotoxins, and renally dose medications when appropriate. (2) Altered mental status: Current visit: Yes Status: Acute Unknown etiology but patient with a long history of overdose on both illicit drugs and presumably medications. Currently appears like overdose on a sedative such as her benzo is a possibility - as patient was protecting her airway and responsive did not attempt flumazenil. UDS + for benzos. Patient was not hypoglycemic, and despite LISA does not appear to be uremic by labs. LFTs are normal. As previously stated patient may have overdosed, potentially with her Benzo therapy - there is note previously of possible ' hoarding' behavior of her medications with intentional overdose that she has previously and currently denies. No evidence of ACS by labs, or CVA or space occupying lesion by CT Head. Electrolytes are remarkably stable. Marked leukocytosis which may be reactive, with a urinalysis and CXR negative for evidence of infection and patient is afebrile, and is trending down. Mental Status appears at baseline without intervention. (3) Hypertension: Current visit: Yes Status: Chronic Holding Prazosin, ARB. Reinitiate Clonidine as above. (4) Drug abuse and dependence: Current visit: Yes Status: Chronic History noted. (5) Peptic ulcer disease: Current visit: Yes Status: Chronic Holding PPI as above. Initiate renally dosed H2 kaya. (6) DVT prophylaxis: Current visit: Yes Status: Acute SC Heparin Subjective Interval history since last seen: 47 year old woman with a prior history of Bipolar disorder, polysubstance abuse with overdose, and potential intentional overdose of prescribed medications presented to [facility] Emergency Department with noted altered mental status and LISA. Ms. Olsen has a prior medical history of Hypertension, Seizure disorder, and obesity. She has a psychiatric history of Bipolar Disorder, Borderline personality disorder, and polysubstance abuse with prior overdose history on both illicit drugs and medications, potentially purposeful. In December of this year she was admitted to the hospital with altered mental status and profound hypotension requiring ICU level care with pressor support and IVF resuscitation - thought secondary to purposeful overdose of her own antihypertensive medications. She is chronically followed by [facility]. The patient is a frequent visitor to the ED, and one week ago she presented with complaint of swelling in her hands and face. Her work-up was essentially unremarkarkable except for evidence of an acute kidney injury, with a creatinine up from her baseline of 0.7 to a value of 1.25. The patient has had multiple prior elevated creatinine values. She was administered a dose of lasix and discharged home. On the day of admission Ms. Olsen presented with an altered mental status, noted to be in significant acute kidney injury with a creatinine of 4.85. She did not however have hyperkalemia, and her BUN was elevated at 47. Her white count was significantly elevated at 17, with evidence of a left shift but no bandemia. Lactate and troponin were negative, and her CXR and CT of the head were without acute abnormalities. The patient failed to respond to Naloxone, but consideration was given to a potential benzo overdose. Her UDS was positive for benzo use, which she is on chronically. She was found to be arousable and protecting her airway, and following insertion of a Triple Lumen Catheter the patient was referred for admission to the ICU. This morning Ms. Olsen is awake and appears back at her baseline mental status. Her creatinine has improved dramatically this morning with hydration, and her renal ultrasound is essentially unremarkable. She continues to complain of right upper extremity pain, with negative imaging. No other events reported. Remains afebrile. Exam Narrative Exam Narrative: General: AAOX3, NAD. Neck: Supple CV: Regular, nontachycardic, S1S2, No rubs, murmurs, or gallops. Pulmonary: Clear to auscultation bilaterally, no crackles, wheezing, or rhonchi on limited anterior and lateral exam, and limited also by body habitus. Abdomen: + Bowel Sounds, soft, nontender, nondistended Vascular: No significant lower extremity edema Skin: Right sided inguinal TLC noted. Psych: Unable to assess Objective Objective Clinical Data: Abnormal lab results 05/04/18 05/05/18 05/05/18 Range/Units 14:25 06:20 06:20 WBC 14.17 H (4.4-10.8) k/cumm RBC 3.90 L (4.00-5.20) m/cumm Plt Count 403 H (130-400) x1000/uL Absolute Neutrophils 10.95 H (1.2-6.7) k/cumm Absolute Monocytes 1.20 H (0.11-0.7) k/cumm Potassium 3.2 L (3.5-5.1) mmol/L Anion Gap 15.1 H (3-11) mmol/L BUN 37 H D (7-18) mg/dL Creatinine 2.17 H D (0.55-1.02) mg/dL Glucose 111 H (70-100) mg/dL Calcium 8.3 L (8.5-10.1) mg/dL Urine Protein 100 H (Negative) mg/dL Urine Ketones Trace H (Negative) mg/dL Urine Blood Large H (Negative) Urine RBC >50 H (0-2) Vital Signs Temperature 37 C 05/05/18 03:25 Temperature Source Tympanic 05/05/18 03:25 Pulse 93 H 05/05/18 08:00 Pulse 101 H 05/05/18 08:00 Respiratory Rate 9 L 05/05/18 08:00 Respiratory Effort Non-Labored 05/05/18 09:00 Respiratory Depth Normal 05/05/18 09:00 Respiratory Pattern Normal 05/05/18 09:00 Blood Pressure 149/72 H 05/05/18 08:00 Blood Pressure Mean 87 05/05/18 08:00 Blood Pressure Position Supine 05/05/18 09:00 Pulse Oximetry 94 L 05/05/18 08:00 Respiratory End-tidal CO2 30 05/04/18 23:30 Oxygen Delivery Method Nasal Cannula 05/04/18 19:50 Oxygen Flow Rate 2 05/04/18 19:50 Intake & Output 05/04/18 05/05/18 05/05/18 23:59 11:59 23:59 Intake Total 2950.0 / 2950.0 3117.5 / 3117.5 Output Total 2660 / 2660 3375 / 3375 Balance 290.0 / 290.0 -257.5 / -257.5 Weight 104.9 kg 104.9 kg Intake: IV 2950.0 / 2950.0 2527.5 / 2527.5 Oral 590 / 590 Output: Urine 2660 / 2660 3375 / 3375 Other: Urine Color Yellow Yellow Urine Appearance Clear Clear Comment benavidez in place. Urine dip positive for protein and blood. Benavidez intact and draining well. Laboratory Results WBC 14.17 k/cumm (4.4-10.8) H 05/05/18 06:20 RBC 3.90 m/cumm (4.00-5.20) L 05/05/18 06:20 Hgb 12.2 g/dL (12.0-15.5) 05/05/18 06:20 Hct 36.2 % (36.0-46.0) 05/05/18 06:20 MCV 92.8 fL (80-95) 05/05/18 06:20 MCH 31.3 pg (27.0-33.0) 05/05/18 06:20 MCHC 33.7 g/dL (32.0-36.0) 05/05/18 06:20 RDW 13.2 % (11.7-14.6) 05/05/18 06:20 Plt Count 403 x1000/uL (130-400) H 05/05/18 06:20 MPV 9.4 fL (8.0-11.0) 05/05/18 06:20 Immature Gran % 0.2 05/05/18 06:20 Neutrophils % 77.3 05/05/18 06:20 Lymphocytes % 12.5 05/05/18 06:20 Monocytes % 8.5 05/05/18 06:20 Eosinophils % 1.3 05/05/18 06:20 Basophils % 0.2 05/05/18 06:20 Absolute Neutrophils 10.95 k/cumm (1.2-6.7) H 05/05/18 06:20 Absolute Lymphocytes 1.77 k/cumm (1.2-3.4) 05/05/18 06:20 Absolute Monocytes 1.20 k/cumm (0.11-0.7) H 05/05/18 06:20 Absolute Eosinophils 0.18 k/cumm (0.0-0.7) 05/05/18 06:20 Absolute Basophils 0.03 k/cumm (0.0-0.2) 05/05/18 06:20 Sodium 142 mmol/L (136-145) 05/05/18 06:20 Potassium 3.2 mmol/L (3.5-5.1) L 05/05/18 06:20 Chloride 105 mmol/L (98-107) 05/05/18 06:20 Carbon Dioxide 21.9 mmol/L (21.0-32.0) 05/05/18 06:20 Anion Gap 15.1 mmol/L (3-11) H 05/05/18 06:20 BUN 37 mg/dL (7-18) H D 05/05/18 06:20 Creatinine 2.17 mg/dL (0.55-1.02) H D 05/05/18 06:20 Estimated GFR/1.73 m2 24.10 (mL/min/1.73m2) 05/05/18 06:20 Glucose 111 mg/dL (70-100) H 05/05/18 06:20 Lactate 1.3 mmol/L (0.6-1.4) 05/04/18 13:10 Calcium 8.3 mg/dL (8.5-10.1) L 05/05/18 06:20 Magnesium 1.9 mg/dL (1.8-2.4) 05/04/18 12:00 Total Bilirubin 0.3 mg/dL (0.2-1.0) 05/04/18 12:00 AST 37 U/L (15-37) 05/04/18 12:00 ALT 47 U/L (12-78) 05/04/18 12:00 Alkaline Phosphatase 148 U/L (46-116) H 05/04/18 12:00 Troponin I < 0.02 ng/mL (0.00-0.06) 05/04/18 12:00 Total Protein 7.8 g/dL (6.4-8.2) 05/04/18 12:00 Albumin 3.9 g/dL (3.4-5.0) 05/04/18 12:00 Urine Color Yellow (Yellow) 05/04/18 14:25 Urine Clarity Cloudy 05/04/18 14:25 Urine pH 5.5 (5-8) 05/04/18 14:25 Ur Specific [place] 1.020 (1.005-1.025) 05/04/18 14:25 Urine Protein 100 mg/dL (Negative) H 05/04/18 14:25 Urine Ketones Trace mg/dL (Negative) H 05/04/18 14:25 Urine Blood Large (Negative) H 05/04/18 14:25 Urine Nitrite Negative (Negative) 05/04/18 14:25 Urine Bilirubin Negative (Negative) 05/04/18 14:25 Urine Urobilinogen 0.2 EU/dL (Up TO 0.2) 05/04/18 14:25 Ur Leukocyte Esterase Negative (Negative) 05/04/18 14:25 Urine RBC >50 (0-2) H 05/04/18 14:25 Urine WBC 0-2 HPF (0-5) 05/04/18 14:25 Ur Epithelial Cells Many HPF (Negative) 05/04/18 14:25 Urine Crystals Moderate amorphous HPF (Negative) 05/04/18 14:25 Urine Bacteria Moderate HPF (Negative) 05/04/18 14:25 Urine Casts 0-2 hyaline LPF (Negative) 05/04/18 14:25 Urine Mucus Trace (Negative) 05/04/18 14:25 Ur Culture Indicated? No/sq. contamination 05/04/18 14:25 Urine Osmolality 219 mosm/Kg (150-1150) 05/04/18 14:25 Ur Random Sodium 30 mmol/L 05/04/18 14:25 Urine Creatinine 141.08 mg/dL 05/04/18 14:25 Urine Glucose Negative mg/dL (Negative) 05/04/18 14:25 Urine Opiates Screen Negative (Negative) 05/04/18 19:16 Urine Methadone Screen Negative (Negative) 05/04/18 19:16 Ur Barbiturates Screen Negative (Negative) 05/04/18 19:16 Ur Tricyclics Screen Negative (Negative) 05/04/18 19:16 Ur Amphetamines Screen Negative (Negative) 05/04/18 19:16 U Benzodiazepines Scrn Positive (Negative) 05/04/18 19:16 Urine Cocaine Screen Negative (Negative) 05/04/18 19:16 Ur THC Screen Negative (Negative) 05/04/18 19:16 Objective Narrative Objective Narrative: Exam(s) a US:US renal SYMPTOM/DIAGNOSIS: LISA RENAL ULTRASOUND: Comparison is made with CT of the abdomen and pelvis dated 12/12/17. The right kidney measures 12.4 cm. in length. The left kidney measures 12.6 cm. in length. The parenchymal thickness appears normal. No hydronephrosis or perinephric collection is seen. There are a few echogenic reflectors bilaterally which could represent artifacts versus tiny non obstructing stones or vascular calcifications. The prevoid bladder volume measured 287 cc's. The postvoid residual is 19 cc's. Both ureteral jets were identified. IMPRESSION: No evidence of hydronephrosis. Question of tiny stones versus artifacts bilaterally. Exam(s) a RAD:XR humerus RT a RAD:XR shoulder RT complete 2+V SYMPTOM/DIAGNOSIS: PAIN RIGHT SHOULDER: Comparison is made with 12/17/17. An old fracture deformity is again noted involving the proximal humerus and distal clavicle. No acute fracture or dislocation is seem. RIGHT HUMERUS: There are old fracture deformities of the distal clavicle and proximal humerus. No acute fractures are identified. The elbow is unremarkable as visualized.
[2018-05-05] MEDS: traMADol 50 MG TAB PO (14:17)
[2018-05-05] MEDS: cloNIDine 0.1 MG TAB 0.2 MG PO ×2 (14:17→21:52)
--- NOTE | 2018-05-05 14:37 | PT.INNT ---
Date of service: 05/05/18 Time of Service: 14:37 PT Notes PHYSICAL THERAPY NOTE 05/05/18 PT Consult received, chart reviewed, attempted to see for evaluation, pt stating she is not feeling well, just got medication for blood pressure. Current reading is 184/87 down from 204/87. Pt requested return in am for consult. Jennifer Eckert PT
--- NOTE | 2018-05-05 15:16 | CHAPLAIN ---
Pilar is resting in bed when I visit. She was pleasant and engaged in a conversation with me. When I asked if she expected visitors, she said that the ICU staff is currently trying to reach her daughter in [place]. Pilar talked about coming to the ER last week and being discharged from there and then returning yesterday and being admitted. She said she didn't know where she was yesterday and couldn't remember her name, but is feeling better today. She said she has only a very few friends locally, but wasn't interested in contacting any of them. She described one friend as being like a mother to me but didn't want that person coming to the hospital in bad weather.
[2018-05-05] MEDS: traMADol 50 MG TAB 100 MG PO (19:50)
[2018-05-05] MEDS: ALPRAZolam 0.5 MG TAB 2 MG PO (21:51)
[2018-05-06] VITALS (79 sets, daily range): BP systolic 143–185; BP diastolic 86–100; PULSE 71–98; RESP 10–51; TEMP 36.5–36.9; O2SAT 77–100
[2018-05-06] MEDS: Heparin 5,000 UNITS/ML VIAL 5000 UNITS SC ×3 (02:54→18:05)
[2018-05-06] MEDS: Normal Saline Flush 10 ML SYR IVP ×2 (02:54→20:10)
[2018-05-06] MEDS: ACETAMINOPHEN 1,000 MG/100 ML BTL 200 MG IVPB (02:54)
[2018-05-06] MEDS: Normal Saline 1,000 ML 200 ML IV ×2 (02:55→09:18)
--- NOTE | 2018-05-06 08:35 | PDOC.CMPRO ---
Care Management Progress Note S/O: Pilar was sitting up in her chair when CM met with her, she remains appropriate though shares her discontentment freely which is her baseline presentation and appreciated by this newspaper writer. She reported not sleeping well due to her ambien being held. CM spoke with Pilar's CM at [facility]; Michael who reported Pilar is provided daily med drops in the morning and is observed taking her morning medications. He shared there are times when she is provided multiple day's worth of medications due to holidays, or time away. He also reported [facility] has had the same concerns around Pilar collecting medications and ingesting all at once. He shared Penny Burgos, [employer] manages Pilar's medications. A: 47 year old female admitted to [facility] 05/04/18 with LISA P: Pilar will return home when ready per MD-she will resume community based supports including [employer] Medication management. She will transport via private vehicle with [facility] or her roommate. CM will continue to monitor clinical progress and support discharge planning considerations.
--- NOTE | 2018-05-06 08:37 | CMPROGNOTE_ITS ---
Care Management Progress Note S/O: Pilar was sitting up in her chair when CM met with her, she remains appropriate though shares her discontentment freely which is her baseline presentation and appreciated by this racebook writer. She reported not sleeping well due to her ambien being held. CM spoke with Pilar's CM at [facility]; Michael who reported Pilar is provided daily med drops in the morning and is observed taking her morning medications. He shared there are times when she is provided multiple day 's worth of medications due to holidays, or time away. He also reported [facility] has had the same concerns around Pilar collecting medications and ingesting all at once. He shared Penny Burgos, [employer] manages Pilar's medications. A: 47 year old female admitted to [facility] 05/04/18 with LISA P: Pilar will return home when ready per MD-she will resume community based supports including GROUT PUMP OPERATOR Medication management. She will transport via private vehicle with [facility] or her roommate. CM will continue to monitor clinical progress and support discharge planning considerations.
[2018-05-06 09:00] LABS: Abs Immature Grans 0.04 k/cumm (0.0-0.09); Absolute Basophil Count 0.04 k/cumm (0.0-0.2); Absolute Eosinophil Count 0.23 k/cumm (0.0-0.7); Absolute Lymphocyte Count 1.66 k/cumm (1.2-3.4); Absolute Monocyte Count 0.76 k/cumm (0.11-0.7); Basophils % 0.4; Eosinophils % 2.6; HCT 37.4 % (36.0-46.0); HGB 12.6 g/dL (12.0-15.5); Immature Grans % 0.4; Lymphocytes % 18.6; Mean Corp. HGB Concentration 33.7 g/dL (32.0-36.0); Mean Corpuscular Hemoglobin 31.3 pg (27.0-33.0); Mean Platelet Volume 9.4 fL (8.0-11.0); Monocytes % 8.5; Neutrophils % 69.5; Platelet Count 367 x1000/uL (130-400); RBC 4.02 m/cumm (4.00-5.20); RBC Distribution Width 13.1 % (11.7-14.6); White Blood Cell Count 8.93 k/cumm (4.4-10.8)
[2018-05-06 09:01] LABS: Absolute Neutrophil Count 6.21 k/cumm (1.2-6.7)
[2018-05-06 09:02] LABS: Anion Gap 8.6 mmol/L (3-11); BUN 22 mg/dL (7-18); CO2 27.4 mmol/L (21.0-32.0); CREATININE 1.14 mg/dL (0.55-1.02); Calcium 8.5 mg/dL (8.5-10.1); Chloride 105 mmol/L (98-107); Estimated GFR 50.66 (mL/min/1.73m2); Glucose 102 mg/dL (70-100); Potassium 3.2 mmol/L (3.5-5.1); Sodium 141 mmol/L (136-145)
[2018-05-06] MEDS: cloNIDine 0.1 MG TAB 0.2 MG PO ×2 (09:32→22:23)
[2018-05-06] MEDS: Zonisamide 100 MG CAP PO ×2 (09:32→20:10)
[2018-05-06] MEDS: amLODIPine 10 MG TAB PO (09:34)
[2018-05-06] MEDS: Magnesium Oxide 400 MG TAB PO (10:21)
[2018-05-06] MEDS: Potassium Chloride 20 MEQ TABCR 40 MEQ PO ×2 (10:21→16:30)
[2018-05-06] MEDS: ACETAMINOPHEN 1,000 MG/100 ML BTL 400 MG IVPB ×2 (10:21→18:05)
--- NOTE | 2018-05-06 11:40 | PT.INIE ---
Date of service: 05/06/18 Time of Service: 11:36 PT Notes Inpatient Physical Therapy Evaluation Date: 05/06/2018 Referring Doctor: Sandip Amador PT Orders: PT CONSULT: a Precautions: Fall precautions Patient Profile/Admitting Diagnosis: Patient is a 47-year-old female admitted with acute kidney injury, altered mental status PMHX: Bipolar disorder, borderline personality disorder, obesity, seizure disorder, polysubstance abuse with overdose, anxiety, depression, kidney stones, right shoulder dislocation, hysterectomy, cholecystectomy, appendectomy Social History/Home Situation: Lives in an apartment in [facility] with roommate, baseline mobility independent gait without assistive device independent with ADLs Equipment Owned/DME: None Subjective: Patient lying in bed watching TV, agreeable to PT consult. Objective: General Observation: Telemetry, IV, Yang catheter Mental Status: A and O x3 Pain: No complaints of pain Bed Mobility/Transfers: Spine to sit: Independent Sit to stand: SBA with FWW Bed to chair: SBA with FWW Stand to sit: Supervision Gait: CGA/SBA with FW W 50 feet x2, slow steady gait pattern. Patient up in chair after gait session completed. Patient does not have a front wheel walker at home but may benefit want from FW W initially until back at normal independent mobility. Balance: Static Sitting: Normal Dynamic Sitting: Normal Static Standing: Fair Dynamic Standing: Fair Special Tests: Mobility Limitations Standardized Measure [facility] AM-PAC 6 clicks Basic Mobility Inpatient Short Form: Raw Score: 18 standardized Score: 43.63 CMS Score: 46.58% CMS Modifier: CK Informed Consent/Education: Patient instructed in purpose of PT consult and plan of care. Assessment: Patient is a 47 year old female referred to physical therapy services with the diagnosis of with acute kidney injury, altered mental status in setting of Bipolar disorder, borderline personality disorder, obesity, seizure disorder, polysubstance abuse with overdose, anxiety, depression, kidney stones, right shoulder dislocation. Patient presents with the following impairment level findings: Weakness due to recent hospital immobilization, requiring use of front wheel walker for gait stability, due to decreased static and dynamic standing balance. Patient will benefit from short-term therapy intervention for strengthening and progressive mobility training, with goal to return to home setting. She may benefit from front wheel walker and home setting for safety with gait. Impairments are contributing to the following functional limitations: AMPAC score CMS Score: 46.58% Patient is assessed as a Moderate 71449 complexity based on the following: History: See above Examination: see above Presentation: Evolving Decision Making: AMPAC score CMS Score: 46.58% Goals: Goals X1 week 1. Supine-Sit: Independent 2. Sit-Supine: Independent 3. Sit-Stand: Independent 4. Stand-Sit: Independent 5. Bed-Chair: Supervision with FWW 6. Chair-Bed: Supervision with FW W 7. Gait: Supervision with FWW 75 feet x2 Plan of Care/Treatment Plan: 1-2x/day, 7 days/week x 1 week. Plan of care has been reviewed with the FORENSIC ACCOUNTANT providing the service under Physical Therapy direction. Initiate Physical Therapy intervention for strengthening, bed mobility, transfers, gait, stairs, balance training, use of assistive device. DISCHARGE RECOMMENDATIONS: Home with FWW TREATMENT CODE/TIME: 23 minutes IE 11:35 AM G Codes in the area mobility of walking and moving around: current status [id number] CK; projected status GP [id number]. Discharge status (if discharging) GP [id number] CK based on AMPAC score CMS Score: 46.58% Jennifer Eckert PT Disclaimer: This note was created using [employer] voice recognition software. It was reviewed for major content. However, there may be multiple small discrepancies and errors due to the voice recognition aspects of the software.
--- NOTE | 2018-05-06 11:49 | IN_ITS ---
Date of service: 05/06/18 Time of Service: 11:36 PT Notes Inpatient Physical Therapy Evaluation Date: 05/06/2018 Referring Doctor: Sandip Amador PT Orders: PT CONSULT: a Precautions: Fall precautions Patient Profile/Admitting Diagnosis: Patient is a 47-year-old female admitted with acute kidney injury, altered mental status PMHX: Bipolar disorder, borderline personality disorder, obesity, seizure disorder, polysubstance abuse with overdose, anxiety, depression, kidney stones , right shoulder dislocation, hysterectomy, cholecystectomy, appendectomy Social History/Home Situation: Lives in an apartment in [facility] with roommate, baseline mobility independent gait without assistive device independent with ADLs Equipment Owned/DME: None Subjective: Patient lying in bed watching TV, agreeable to PT consult. Objective: General Observation: Telemetry, IV, Yang catheter Mental Status: A and O x3 Pain: No complaints of pain Bed Mobility/Transfers: Spine to sit: Independent Sit to stand: SBA with FWW Bed to chair: SBA with FWW Stand to sit: Supervision Gait: CGA/SBA with FW W 50 feet x2, slow steady gait pattern. Patient up in chair after gait session completed. Patient does not have a front wheel walker at home but may benefit want from FW W initially until back at normal independent mobility. Balance: Static Sitting: Normal Dynamic Sitting: Normal Static Standing: Fair Dynamic Standing: Fair Special Tests: Mobility Limitations Standardized Measure [facility] AM-PAC 6 clicks Basic Mobility Inpatient Short Form: Raw Score: 18 standardized Score: 43.63 CMS Score: 46.58% CMS Modifier: CK Informed Consent/Education: Patient instructed in purpose of PT consult and plan of care. Assessment: Patient is a 47 year old female referred to physical therapy services with the diagnosis of with acute kidney injury, altered mental status in setting of Bipolar disorder, borderline personality disorder, obesity, seizure disorder, polysubstance abuse with overdose, anxiety, depression, kidney stones, right shoulder dislocation. Patient presents with the following impairment level findings: Weakness due to recent hospital immobilization, requiring use of front wheel walker for gait stability, due to decreased static and dynamic standing balance. Patient will benefit from short-term therapy intervention for strengthening and progressive mobility training, with goal to return to home setting. She may benefit from front wheel walker and home setting for safety with gait. Impairments are contributing to the following functional limitations: AMPAC score CMS Score: 46.58% Patient is assessed as a Moderate 34230 complexity based on the following: History: See above Examination: see above Presentation: Evolving Decision Making: AMPAC score CMS Score: 46.58% Goals: Goals X1 week 1. Supine-Sit: Independent 2. Sit-Supine: Independent 3. Sit-Stand: Independent 4. Stand-Sit: Independent 5. Bed-Chair: Supervision with FWW 6. Chair-Bed: Supervision with FW W 7. Gait: Supervision with FWW 75 feet x2 Plan of Care/Treatment Plan: 1-2x/day, 7 days/week x 1 week. Plan of care has been reviewed with the HOT REPAIRMAN providing the service under Physical Therapy direction. Initiate Physical Therapy intervention for strengthening, bed mobility, transfers, gait, stairs, balance training, use of assistive device. DISCHARGE RECOMMENDATIONS: Home with FWW TREATMENT CODE/TIME: 23 minutes IE 11:35 AM G Codes in the area mobility of walking and moving around: current status [id number] CK; projected status GP [id number]. Discharge status (if discharging) GP [id number] CK based on AMPAC score CMS Score: 46.58% Jennifer Eckert PT Disclaimer: This note was created using [employer] voice recognition software. It was reviewed for major content. However, there may be multiple small discrepancies and errors due to the voice recognition aspects of the software.
[2018-05-06] MEDS: ALPRAZolam 0.5 MG TAB 2 MG PO ×2 (12:31→22:23)
[2018-05-06] MEDS: Gabapentin 400 MG CAP 800 MG PO ×3 (12:31→20:10)
--- NOTE | 2018-05-06 12:32 | PGE_ITS ---
Date of Service Date of service: 05/06/18 Time of Service: 12:25 Assessment and Plan (1) Acute kidney injury (nontraumatic): Current visit: Yes Status: Acute Evidence of a mild increase in creatinine one week ago, presented with significant elevation of unknown etiology. Potentially prerenal, with dehydration a possibility as it is uncertain how long the patient was obtunded and with potentially poor PO intake - also on daily ARB with Losartan. Patient also reported poor PO intake due to some nausea and vomiting at home. FeNa <1%, but BUN to Creatinine ratio is <20, Maria M is >20, and Uosm is <500. Also considered possibility for intrinsic renal failure with ATN vs. AIN as part of differential. For now will continue to hold ARB. As patient is now hypertensive, with SBP in the 180's Clonidine was reinitiated. Continue IVFs but decrease rate. No longer requiring ICU Level of care. (2) Altered mental status: Current visit: Yes Status: Acute Unknown etiology but patient with a long history of overdose on both illicit drugs and presumably medications. Currently appears like overdose on a sedative such as her benzo is a possibility - as patient was protecting her airway and responsive did not attempt flumazenil. UDS + for benzos. As previously stated patient may have overdosed, potentially with her Benzo therapy - there is note previously of possible 'hoarding' behavior of her medications with intentional overdose of antihypertensive medications that she has previously and currently denies. Do recommend that in the future not only she be delivered medications daily, but perhaps with monitored administration of her medications as well. No evidence of ACS by labs, or CVA or space occupying lesion by CT Head. Electrolytes are remarkably stable. Marked leukocytosis which may be reactive, with a urinalysis and CXR negative for evidence of infection and patient is afebrile, with elevated WBC that was likely reactive and now normalized. Patient was not hypoglycemic, and despite LISA did not appear to be uremic by labs. LFTs were normal. Mental Status appears at baseline without intervention. (3) Hypertension: Current visit: Yes Status: Chronic Restart Prazosin and initiate CCB therapy with max dose Amlodipine. Continue to hold ARB in setting of LISA. Reinitiated Clonidine as above. (4) Drug abuse and dependence: Current visit: Yes Status: Chronic History noted. (5) Peptic ulcer disease: Current visit: Yes Status: Chronic Restart PPI. (6) DVT prophylaxis: Current visit: Yes Status: Acute SC Heparin Subjective Interval history since last seen: 47 year old woman with a prior history of Bipolar disorder, polysubstance abuse with overdose, and potential intentional overdose of prescribed medications presented to [facility] Emergency Department with noted altered mental status and LISA. Ms. Olsen has a prior medical history of Hypertension, Seizure disorder, and obesity. She has a psychiatric history of Bipolar Disorder, Borderline personality disorder, and polysubstance abuse with prior overdose history on both illicit drugs and medications, potentially purposeful. In December of this year she was admitted to the hospital with altered mental status and profound hypotension requiring ICU level care with pressor support and IVF resuscitation - thought secondary to purposeful hoarding and overdose of her own antihypertensive medications. She is chronically followed by mental health, with daily delivery but not monitoring of home meds. The patient is a frequent visitor to the ED, and one week ago she presented with complaint of swelling in her hands and face. Her work-up was essentially unremarkarkable except for evidence of an acute kidney injury, with a creatinine up from her baseline of 0.7 to a value of 1.25. The patient has had multiple prior elevated creatinine values. She was administered a dose of lasix and discharged home on that day. On the day of admission Ms. Olsen presented with an altered mental status, noted to be in significant acute kidney injury with a creatinine of 4.85. She did not however have hyperkalemia, and her BUN was elevated at 47. Her white count was significantly elevated at 17, with evidence of a left shift but no bandemia. Lactate and troponin were negative, and her CXR and CT of the head were without acute abnormalities. The patient failed to respond to Naloxone, but consideration was given to a potential benzo overdose. Her UDS was positive for benzo use, which she is on chronically. She was found to be arousable and protecting her airway, and following insertion of a Triple Lumen Catheter the patient was referred for admission to the ICU. This morning Ms. Olsen is awake and appears back at her baseline mental status. Her creatinine has improved dramatically again this morning with hydration and is near baseline, and her renal ultrasound was checked and essentially unremarkable. She is now hypertensive. No other events reported. Remains afebrile. Exam Narrative Exam Narrative: General: AAOX3, NAD. Neck: Supple CV: Regular, nontachycardic, S1S2, No rubs, murmurs, or gallops. Pulmonary: Clear to auscultation bilaterally, no crackles, wheezing, or rhonchi on limited anterior and lateral exam, and limited also by body habitus. Abdomen: + Bowel Sounds, soft, nontender, nondistended Vascular: No significant lower extremity edema Skin: Right sided inguinal TLC noted. Psych: Normal mood and affect Objective Objective Clinical Data: Abnormal lab results 05/06/18 05/06/18 Range/Units 08:15 08:15 Absolute Monocytes 0.76 H (0.11-0.7) k/cumm Potassium 3.2 L (3.5-5.1) mmol/L BUN 22 H D (7-18) mg/dL Creatinine 1.14 H D (0.55-1.02) mg/dL Glucose 102 H (70-100) mg/dL Vital Signs Temperature 36.5 C 05/06/18 10:21 Temperature Source Tympanic 05/06/18 03:05 Pulse 75 05/06/18 03:20 Pulse 73 05/06/18 03:50 Respiratory Rate 15 05/06/18 03:50 Respiratory Effort 05/06/18 03:05 Respiratory Depth Normal 05/06/18 03:05 Respiratory Pattern Normal 05/06/18 03:05 Blood Pressure 175/100 H 05/06/18 03:20 Blood Pressure Mean 117 05/06/18 03:20 Blood Pressure Position Supine 05/06/18 03:05 Pulse Oximetry 98 05/06/18 08:20 Respiratory End-tidal CO2 30 05/04/18 23:30 Oxygen Delivery Method Nasal Cannula 05/06/18 08:20 Oxygen Flow Rate 1 05/06/18 08:20 Pain Level 8 05/06/18 03:05 Intake & Output 05/05/18 05/06/18 05/06/18 23:59 11:59 23:59 Intake Total 2756.666 / 2756.666 2786.667 / 2786.667 Output Total 4700 / 4700 1500 / 1500 Balance -1943.334 / -4435.652 3932.667 / 1286.667 Weight 108.3 kg Intake: IV 2076.666 / 2076.666 2486.667 / 2486.667 Oral 680 / 680 300 / 300 Output: Urine 4700 / 4700 1500 / 1500 Other: Urine Color Yellow Yellow Urine Appearance Clear Clear Sediment Urine Odor Normal None Comment benavidez cath in place benavidez cath in place Voiding Methods Indwelling Catheter Indwelling Catheter Laboratory Results WBC 8.93 k/cumm (4.4-10.8) D 05/06/18 08:15 RBC 4.02 m/cumm (4.00-5.20) 05/06/18 08:15 Hgb 12.6 g/dL (12.0-15.5) 05/06/18 08:15 Hct 37.4 % (36.0-46.0) 05/06/18 08:15 MCV 93.0 fL (80-95) 05/06/18 08:15 MCH 31.3 pg (27.0-33.0) 05/06/18 08:15 MCHC 33.7 g/dL (32.0-36.0) 05/06/18 08:15 RDW 13.1 % (11.7-14.6) 05/06/18 08:15 Plt Count 367 x1000/uL (130-400) 05/06/18 08:15 MPV 9.4 fL (8.0-11.0) 05/06/18 08:15 Abs Immat Gran (auto) Cancelled 05/06/18 06:29 Immature Gran % 0.4 05/06/18 08:15 Neutrophils % 69.5 05/06/18 08:15 Lymphocytes % 18.6 05/06/18 08:15 Monocytes % 8.5 05/06/18 08:15 Eosinophils % 2.6 05/06/18 08:15 Basophils % 0.4 05/06/18 08:15 Absolute Neutrophils 6.21 k/cumm (1.2-6.7) 05/06/18 08:15 Band Neutrophils Cancelled 05/06/18 06:29 Absolute Lymphocytes 1.66 k/cumm (1.2-3.4) 05/06/18 08:15 Absolute Monocytes 0.76 k/cumm (0.11-0.7) H 05/06/18 08:15 Absolute Eosinophils 0.23 k/cumm (0.0-0.7) 05/06/18 08:15 Absolute Basophils 0.04 k/cumm (0.0-0.2) 05/06/18 08:15 Metamyelocytes Cancelled 05/06/18 06:29 Myelocytes Cancelled 05/06/18 06:29 Promyelocytes Cancelled 05/06/18 06:29 Nucleated RBCs Cancelled 05/06/18 06:29 Differential Comment Cancelled 05/06/18 06:29 Atypical Lymphocytes Cancelled 05/06/18 06:29 Other Cell Type Cancelled 05/06/18 06:29 RBC Morphology Cancelled 05/06/18 06:29 Polychromasia Cancelled 05/06/18 06:29 Hypochromasia Cancelled 05/06/18 06:29 Poikilocytosis Cancelled 05/06/18 06:29 Basophilic Stippling Cancelled 05/06/18 06:29 Anisocytosis Cancelled 05/06/18 06:29 Microcytosis Cancelled 05/06/18 06:29 Macrocytosis Cancelled 05/06/18 06:29 Spherocytes Cancelled 05/06/18 06:29 Target Cells Cancelled 05/06/18 06:29 Tear Drop Cells Cancelled 05/06/18 06:29 Ovalocytes Cancelled 05/06/18 06:29 Stomatocytes Cancelled 05/06/18 06:29 [place] Bodies Cancelled 05/06/18 06:29 Lesley Cells Cancelled 05/06/18 06:29 Acanthocytes (Spur) Cancelled 05/06/18 06:29 Schistocytes Cancelled 05/06/18 06:29 Sodium 141 mmol/L (136-145) 05/06/18 08:15 Potassium 3.2 mmol/L (3.5-5.1) L 05/06/18 08:15 Chloride 105 mmol/L (98-107) 05/06/18 08:15 Carbon Dioxide 27.4 mmol/L (21.0-32.0) 05/06/18 08:15 Anion Gap 8.6 mmol/L (3-11) 05/06/18 08:15 BUN 22 mg/dL (7-18) H D 05/06/18 08:15 Creatinine 1.14 mg/dL (0.55-1.02) H D 05/06/18 08:15 Estimated GFR/1.73 m2 50.66 (mL/min/1.73m2) 05/06/18 08:15 Glucose 102 mg/dL (70-100) H 05/06/18 08:15 Lactate 1.3 mmol/L (0.6-1.4) 05/04/18 13:10 Calcium 8.5 mg/dL (8.5-10.1) 05/06/18 08:15 Magnesium 1.9 mg/dL (1.8-2.4) 05/04/18 12:00 Total Bilirubin 0.3 mg/dL (0.2-1.0) 05/04/18 12:00 AST 37 U/L (15-37) 05/04/18 12:00 ALT 47 U/L (12-78) 05/04/18 12:00 Alkaline Phosphatase 148 U/L (46-116) H 05/04/18 12:00 Troponin I < 0.02 ng/mL (0.00-0.06) 05/04/18 12:00 Total Protein 7.8 g/dL (6.4-8.2) 05/04/18 12:00 Albumin 3.9 g/dL (3.4-5.0) 05/04/18 12:00 Urine Color Yellow (Yellow) 05/04/18 14:25 Urine Clarity Cloudy 05/04/18 14:25 Urine pH 5.5 (5-8) 05/04/18 14:25 Ur Specific [place] 1.020 (1.005-1.025) 05/04/18 14:25 Urine Protein 100 mg/dL (Negative) H 05/04/18 14:25 Urine Ketones Trace mg/dL (Negative) H 05/04/18 14:25 Urine Blood Large (Negative) H 05/04/18 14:25 Urine Nitrite Negative (Negative) 05/04/18 14:25 Urine Bilirubin Negative (Negative) 05/04/18 14:25 Urine Urobilinogen 0.2 EU/dL (Up TO 0.2) 05/04/18 14:25 Ur Leukocyte Esterase Negative (Negative) 05/04/18 14:25 Urine RBC >50 (0-2) H 05/04/18 14:25 Urine WBC 0-2 HPF (0-5) 05/04/18 14:25 Ur Epithelial Cells Many HPF (Negative) 05/04/18 14:25 Urine Crystals Moderate amorphous HPF (Negative) 05/04/18 14:25 Urine Bacteria Moderate HPF (Negative) 05/04/18 14:25 Urine Casts 0-2 hyaline LPF (Negative) 05/04/18 14:25 Urine Mucus Trace (Negative) 05/04/18 14:25 Ur Culture Indicated? No/sq. contamination 05/04/18 14:25 Urine Osmolality 219 mosm/Kg (150-1150) 05/04/18 14:25 Ur Random Sodium 30 mmol/L 05/04/18 14:25 Urine Creatinine 141.08 mg/dL 05/04/18 14:25 Urine Glucose Negative mg/dL (Negative) 05/04/18 14:25 Urine Opiates Screen Negative (Negative) 05/04/18 19:16 Urine Methadone Screen Negative (Negative) 05/04/18 19:16 Ur Barbiturates Screen Negative (Negative) 05/04/18 19:16 Ur Tricyclics Screen Negative (Negative) 05/04/18 19:16 Ur Amphetamines Screen Negative (Negative) 05/04/18 19:16 U Benzodiazepines Scrn Positive (Negative) 05/04/18 19:16 Urine Cocaine Screen Negative (Negative) 05/04/18 19:16 Ur THC Screen Negative (Negative) 05/04/18 19:16
--- NOTE | 2018-05-06 14:04 | NT_ITS ---
Date of service: 05/06/18 Time of Service: 14:03 PT Notes 05/06/18 Refused PT this PM due to fatigue and just returning to bed. Sunitha Kim, MOBILE APPLICATION ENGINEER
[2018-05-06] MEDS: Normal Saline 1,000 ML 75 ML IV (18:06)
[2018-05-06] MEDS: Baclofen 10 MG TAB PO (20:10)
[2018-05-06] MEDS: Omeprazole 20 MG CAPCR 40 MG PO (20:10)
[2018-05-06] MEDS: Zolpidem 5 MG TAB PO (22:23)
[2018-05-06] MEDS: Prazosin 1 MG CAP 2 MG PO (22:24)
[2018-05-07 00:43] VITALS: BP 120/82; PULSE 78; RESP 18; TEMP 37.1; O2SAT 96
[2018-05-07] MEDS: ACETAMINOPHEN 1,000 MG/100 ML BTL 400 MG IVPB ×2 (02:40→10:29)
[2018-05-07] MEDS: Heparin 5,000 UNITS/ML VIAL 5000 UNITS SC ×2 (02:41→10:29)
[2018-05-07] MEDS: Normal Saline 1,000 ML 75 ML IV (07:18)
[2018-05-07 07:35] VITALS: BP 148/81; PULSE 88; RESP 18; TEMP 35.9; O2SAT 98
[2018-05-07] MEDS: Omeprazole 20 MG CAPCR 40 MG PO (09:02)
[2018-05-07] MEDS: amLODIPine 10 MG TAB PO (09:02)
[2018-05-07] MEDS: Zonisamide 100 MG CAP PO (09:02)
[2018-05-07] MEDS: Venlafaxine 150 MG CAPCR 300 MG PO (09:02)
[2018-05-07] MEDS: Gabapentin 400 MG CAP 800 MG PO ×2 (09:02→12:31)
[2018-05-07] MEDS: cloNIDine 0.1 MG TAB 0.2 MG PO (09:02)
--- NOTE | 2018-05-07 11:00 | PT.INDS ---
Date of service: 05/07/18 Time of Service: 11:00 PT Notes Inpatient Physical Therapy Discharge Summary Date: 05/07/18 Dates of Service: 05/06/18-05/07/18 SUBJECTIVE: Pt lying in bed states she walked the unit last night with nursing and she wants to walk again, states she feels ready to go home today. OBJECTIVE: Bed Mobility/Transfers: Spine to sit: Independent Sit-stand: independent Stand-sit: independent Bed-chair : independent Gait: independent no device 300ft Balance: Static Sitting: Normal Dynamic Sitting: Normal Static Standing: normal Dynamic Standing: good Assessment: Patient is a 47 year old female referred to physical therapy services with the diagnosis of with acute kidney injury, altered mental status. Pt is at independent level with transfers and gait with no device, is at functional level to return to home setting, discharge PT services. Goals: Goals X1 week 1. Supine-Sit: Independent 2. Sit-Supine: Independent 3. Sit-Stand: Independent 4. Stand-Sit: Independent 5. Bed-Chair: Supervision with FWW 6. Chair-Bed: Supervision with FW W 7. Gait: Supervision with FWW 75 feet x2 Pt met goals 1-7 DISCHARGE RECOMMENDATIONS: Home G Codes in the area mobility of walking and moving around; projected status GP [id number]. Discharge status (if discharging) GP [id number] ELY Eckert PT
--- NOTE | 2018-05-07 11:03 | INDS_ITS ---
Date of service: 05/07/18 Time of Service: 11:00 PT Notes Inpatient Physical Therapy Discharge Summary Date: 05/07/18 Dates of Service: 05/06/18-05/07/18 SUBJECTIVE: Pt lying in bed states she walked the unit last night with nursing and she wants to walk again, states she feels ready to go home today. OBJECTIVE: Bed Mobility/Transfers: Spine to sit: Independent Sit-stand: independent Stand-sit: independent Bed-chair : independent Gait: independent no device 300ft Balance: Static Sitting: Normal Dynamic Sitting: Normal Static Standing: normal Dynamic Standing: good Assessment: Patient is a 47 year old female referred to physical therapy services with the diagnosis of with acute kidney injury, altered mental status. Pt is at independent level with transfers and gait with no device, is at functional level to return to home setting, discharge PT services. Goals: Goals X1 week 1. Supine-Sit: Independent 2. Sit-Supine: Independent 3. Sit-Stand: Independent 4. Stand-Sit: Independent 5. Bed-Chair: Supervision with FWW 6. Chair-Bed: Supervision with FW W 7. Gait: Supervision with FWW 75 feet x2 Pt met goals 1-7 DISCHARGE RECOMMENDATIONS: Home G Codes in the area mobility of walking and moving around; projected status GP [id number]. Discharge status (if discharging) GP [id number] ELY Eckert PT
[2018-05-07] MEDS: Normal Saline Flush 10 ML SYR IVP (11:10)
[2018-05-07 11:37] LABS: Abs Immature Grans 0.01 k/cumm (0.0-0.09); Absolute Basophil Count 0.04 k/cumm (0.0-0.2); Absolute Eosinophil Count 0.22 k/cumm (0.0-0.7); Absolute Lymphocyte Count 1.59 k/cumm (1.2-3.4); Absolute Monocyte Count 0.47 k/cumm (0.11-0.7); Absolute Neutrophil Count 4.37 k/cumm (1.2-6.7); Basophils % 0.6; Eosinophils % 3.3; HCT 34.7 % (36.0-46.0); HGB 11.5 g/dL (12.0-15.5); Immature Grans % 0.1; Lymphocytes % 23.7; Mean Corp. HGB Concentration 33.1 g/dL (32.0-36.0); Mean Corpuscular Hemoglobin 31.2 pg (27.0-33.0); Mean Platelet Volume 9.5 fL (8.0-11.0); Neutrophils % 65.3; Platelet Count 363 x1000/uL (130-400); RBC 3.69 m/cumm (4.00-5.20); RBC Distribution Width 12.9 % (11.7-14.6)
[2018-05-07 11:48] LABS: Anion Gap 8.2 mmol/L (3-11); BUN 18 mg/dL (7-18); CO2 23.8 mmol/L (21.0-32.0); CREATININE 1.03 mg/dL (0.55-1.02); Calcium 8.7 mg/dL (8.5-10.1); Chloride 104 mmol/L (98-107); Estimated GFR 56.95 (mL/min/1.73m2); Glucose 136 mg/dL (70-100); Potassium 4.4 mmol/L (3.5-5.1); Sodium 136 mmol/L (136-145)
--- NOTE | 2018-05-07 12:06 | PDOC.CMDIS ---
LACE Index Scoring Tool - Questions: Length of Stay (in days): 3 Acuity (Admit via E.D.?): Yes E.D. Visits: 16 - Answers: Total Score: 10 Risk of Readmission: High Risk Care Management Discharge Reason for Hospitalization: LISA Discharge Plan: Pilar will return home when ready per MD. She will follow up with her PCP and plan of care as prescribed-she will resume community based supports including STRUCTURAL FITTER supports and Medication management. She will transport via private vehicle with [facility] or her roommate. CM will continue to monitor clinical progress and support discharge planning considerations.. She will transport via private vehicle with [facility] or her roomate, Carole. Patient/Family Education Needs: Review discharge instructions, discuss Ask Me Three. - MH Services (Omit if N/A) Current MH Services: STRUCTURAL FITTER
[2018-05-07] MEDS: ALPRAZolam 0.5 MG TAB 2 MG PO (12:30)
[2018-05-07 13:56] VITALS: BP 144/68; PULSE 74; RESP 20; TEMP 36.3; O2SAT 98
--- NOTE | 2018-05-07 14:08 | W.PM.DS.N ---
Date of service: 05/07/18 Time of Service: 14:08 DS: Diagnosis Discharge Diagnosis (1) Acute kidney injury (nontraumatic): Status: Acute (2) Altered mental status: Status: Acute (3) Hypertension: Status: Chronic Discharge Plan Disposition Patient Disposition: HOME Condition: Stable Discharge Details Reason For Visit: LISA Admit Date/Time: 05/04/18 16:27 Admit Provider: Sandip Amador Attending Provider: Sandip Amador Primary Care Provider: Molly Pelayo Hospital Course Hospital Course: CC: Altered Mental Status, LISA HPI: 47 year old woman with a prior history of Bipolar disorder, polysubstance abuse with overdose, and potential intentional overdose of prescribed medications presented to [facility] Emergency Department with noted altered mental status and LISA. Ms. Olsen has a prior medical history of Hypertension, Seizure disorder, and obesity. She has a psychiatric history of Bipolar Disorder, Borderline personality disorder, and polysubstance abuse with prior overdose history on both illicit drugs and medications, potentially purposeful. In December of this year she was admitted to the hospital with altered mental status and profound hypotension requiring ICU level care with pressor support and IVF resuscitation - thought secondary to purposeful hoarding and overdose of her own antihypertensive medications. She is chronically followed by [facility], with daily delivery but not monitoring of home meds. The patient is a frequent visitor to the ED, and one week ago she presented with complaint of swelling in her hands and face. Her work-up was essentially unremarkarkable except for evidence of an acute kidney injury, with a creatinine up from her baseline of 0.7 to a value of 1.25. The patient has had multiple prior elevated creatinine values. She was administered a dose of lasix and discharged home on that day. On the day of admission Ms. Olsen presented with an altered mental status, noted to be in significant acute kidney injury with a creatinine of 4.85. She did not however have hyperkalemia, and her BUN was elevated at 47. Her white count was significantly elevated at 17, with evidence of a left shift but no bandemia. Lactate and troponin were negative, and her CXR and CT of the head were without acute abnormalities. The patient failed to respond to Naloxone, but consideration was given to a potential benzo overdose. Her UDS was positive for benzo use, which she is on chronically. She was found to be arousable and protecting her airway, and following insertion of a Triple Lumen Catheter the patient was referred for admission to the ICU. This morning Ms. Olsen is awake and remains at her baseline mental status. Her creatinine has improved again this morning with hydration and is near her baseline, and her renal ultrasound was checked and essentially unremarkable. Blood Pressure remains hypertensive but improved. No other events reported. Remains afebrile. Hospital Course: (1) Acute kidney injury: Evidence of a mild increase in creatinine one week ago, presented with significant elevation of unknown etiology. Potentially prerenal, with dehydration a possibility as it is uncertain how long the patient was obtunded and with potentially poor PO intake - also on daily ARB with Losartan. Patient also reported poor PO intake due to some nausea and vomiting at home. FeNa <1%, but BUN to Creatinine ratio is <20, Maria M is >20, and Uosm is <500. Creatinine markedly improved from initial value of 4.85 down to 1 this morning, with baseline at approximately 0.8. For now will continue to hold ARB. As patient is hypertensive will substitute amlodipine in it place of the losartan, with continuation of Clonidine and prazosin. (2) Altered mental status: Unknown etiology but patient has a long history of overdose on both illicit drugs and presumably medications. Currently appears like overdose on a sedative such as her benzo is a possibility - as patient was protecting her airway and responsive did not attempt flumazenil. UDS + for benzos which she is currently on. As previously stated patient may have overdosed, potentially with her Benzo therapy - there is note previously of possible 'hoarding' behavior of her medications with intentional overdose of antihypertensive medications that she has previously and currently denies. Do recommend that in the future not only she be delivered medications daily, but perhaps with monitored administration of her medications as well. Also consider changing Long Acting Alprazolam to once daily as opposed to current twice daily dosing. No evidence of ACS by labs, or CVA or space occupying lesion by CT Head. Electrolytes were remarkably stable despite LISA. Marked leukocytosis which may be reactive, with a urinalysis and CXR negative for evidence of infection and patient is afebrile, with elevated WBC that was likely reactive and now normalized. Patient was not hypoglycemic, and despite LISA did not appear to be uremic by labs. LFTs were normal. Mental Status appears at baseline without intervention. (3) Hypertension: Prazosin, CCB therapy, and clonidine. Continue to hold ARB in setting of recent LISA. (4) Drug abuse and dependence: History noted. (5) Peptic ulcer disease: Maintained on PPI. Home Meds and New Rx's Prescriptions: New amlodipine 10 mg Tablet 10 mg PO DAILY Qty: 30 RF: 0 Continue gabapentin 800 MG tablet 800 mg PO QID RF: 0 omeprazole 40 MG capsule,delayed release(DR/EC) 40 mg PO BID Qty: 60 RF: 0 zonisamide [Zonegran] 100 MG capsule 100 mg PO BID Qty: 6 RF: 0 alprazolam [Xanax XR] 3 MG tablet extended release 24 hr 3 mg PO HS RF: 0 zolpidem 5 MG tablet 5 mg PO HS RF: 0 prazosin 2 MG capsule 2 mg PO HS RF: 0 venlafaxine 75 MG tablet 300 mg PO DAILY AM RF: 0 clonidine HCl [Catapres] 0.1 MG tablet 0.2 mg PO BID Qty: 120 RF: 0 Discontinued losartan 25 MG tablet 50 mg PO DAILY RF: 0 Discharge Instructions Stand Alone Forms: Nursing Discharge Form Referrals: Peri Mai [ NON-[facility] STAFF PHYSICIAN] - 05/17/18 9:55 am Activity:: No Strenuous Activity Equipment/Supplies:: No Equipment Needed Diet:: As Tolerated Discharge Orders Discharge Orders: Discharge Order (Routine); Ordered 05/07/18 Ordered By: Sandip Amador Other Ambulatory Orders: Basic Metabolic Panel (Routine) Timeframe: 3 Days Location: Determined by Patient Ordered By: Sandip mAador Exam Narrative Exam Narrative: General: AAOX3, NAD. Neck: Supple CV: Regular, nontachycardic, S1S2, No rubs, murmurs, or gallops. Pulmonary: Clear to auscultation bilaterally, no crackles, wheezing, or rhonchi on limited anterior and lateral exam, and limited also by body habitus. Abdomen: + Bowel Sounds, soft, nontender, nondistended Vascular: No significant lower extremity edema Psych: Normal mood and affect DS: Data Vitals/I&O Vitals and I&O: Vital Signs Temperature 36.3 C L 05/07/18 13:56 Temperature Source Tympanic 05/07/18 13:56 Pulse 74 05/07/18 13:56 Pulse Rhythm Regular 05/06/18 20:00 Pulse 84 05/06/18 13:50 Respiratory Rate 20 05/07/18 13:56 Respiratory Effort Non-Labored 05/06/18 20:00 Respiratory Depth Normal 05/06/18 20:00 Respiratory Pattern Normal 05/06/18 20:00 Blood Pressure 144/68 H 05/07/18 13:56 Blood Pressure Mean 105 05/06/18 11:46 Blood Pressure Position Sitting 05/06/18 11:45 Pulse Oximetry 98 05/07/18 13:56 Respiratory End-tidal CO2 30 05/04/18 23:30 Oxygen Delivery Method Nasal Cannula 05/07/18 13:56 Oxygen Flow Rate 2 05/07/18 13:56 Pain Level 3 05/07/18 10:29 Intake & Output 05/06/18 05/07/18 05/07/18 23:59 11:59 23:59 Intake Total 2352.50 / 2352.50 1990.25 / 1990.25 1030 / 1030 Output Total 2875 / 2875 2100 / 2100 550 / 550 Balance -522.50 / -522.50 -108.75 / -108.75 480 / 480 Weight 98 kg Intake: IV 582.50 / 582.50 1441.25 / 1441.25 Oral 1770 / 1770 550 / 550 1030 / 1030 Output: Urine 2875 / 2875 2100 / 2100 550 / 550 Other: Urine Color Yellow Yellow Yellow Urine Appearance Clear Clear Clear Urine Odor Normal None None Comment Void x1 in the toilet. Void x2 in the toilet. 800 mL already in toilet; 600 mL with this void. Void x1 in the toilet. Stool Characteristics Soft Brown Voiding Methods Toilet Toilet Toilet Completed studies during hospitalization [Text1]: Exam(s) a US:US renal SYMPTOM/DIAGNOSIS: LISA RENAL ULTRASOUND: Comparison is made with CT of the abdomen and pelvis dated 12/12/17. The right kidney measures 12.4 cm. in length. The left kidney measures 12.6 cm. in length. The parenchymal thickness appears normal. No hydronephrosis or perinephric collection is seen. There are a few echogenic reflectors bilaterally which could represent artifacts versus tiny non obstructing stones or vascular calcifications. The prevoid bladder volume measured 287 cc's. The postvoid residual is 19 cc's. Both ureteral jets were identified. IMPRESSION: No evidence of hydronephrosis. Question of tiny stones versus artifacts bilaterally. Exam(s) a RAD:XR humerus RT a RAD:XR shoulder RT complete 2+V SYMPTOM/DIAGNOSIS: PAIN RIGHT SHOULDER: Comparison is made with 12/17/17. An old fracture deformity is again noted involving the proximal humerus and distal clavicle. No acute fracture or dislocation is seem. RIGHT HUMERUS: There are old fracture deformities of the distal clavicle and proximal humerus. No acute fractures are identified. The elbow is unremarkable as visualized. Exam(s) a RAD:XR portable chest AP SYMPTOMS/DIAGNOSIS: LEUKOCYTOSIS, CONFUSION PORTABLE CHEST: Comparison is made with [id number]. The heart is again noted to be enlarged. Leads overlie the chest. There is respiratory motion. The lungs are grossly clear. IMPRESSION: Cardiomegaly. No acute abnormality. Exam(s) a CT:CT head wo SYMPTOMS/DIAGNOSIS: ALTERED MENTATION, RT SIDED WEAKNESS AND PAIN NONCONTRAST HEAD CT: Comparison is made with [id number]. No intracranial hemorrhage, mass or infarct is seen. The ventricles remain normal in size. No skull fracture is seen. The sinuses and mastoid air cells appear clear. IMPRESSION: Negative head CT. Labs on day of discharge: Labs from last 24 hours 05/07/18 05/07/18 11:10 11:10 WBC 6.70 RBC 3.69 L Hgb 11.5 L Hct 34.7 L MCV 94.0 MCH 31.2 MCHC 33.1 RDW 12.9 Plt Count 363 MPV 9.5 Immature Gran % 0.1 Neutrophils % 65.3 Lymphocytes % 23.7 Monocytes % 7.0 Eosinophils % 3.3 Basophils % 0.6 Absolute Neutrophils 4.37 Absolute Lymphocytes 1.59 Absolute Monocytes 0.47 Absolute Eosinophils 0.22 Absolute Basophils 0.04 Sodium 136 Potassium 4.4 D Chloride 104 Carbon Dioxide 23.8 Anion Gap 8.2 BUN 18 Creatinine 1.03 H Estimated GFR/1.73 m2 56.95 Glucose 136 H Calcium 8.7 Preliminary micro results at discharge 05/04/18 13:20 Blood Culture - Preliminary Blood NO GROWTH 48 HOURS 05/04/18 13:10 Blood Culture - Preliminary Blood NO GROWTH 48 HOURS PFS Hypertension (Chronic) H. pylori infection (Chronic 04/07/17) Drug abuse and dependence (Chronic) Borderline personality disorder (Chronic) Bipolar disorder (Chronic) Anxiety Helicobacter pylori infection Peptic ulcer disease Restless leg syndrome Seizure disorder Substance abuse in remission EGD - MAC (04/06/17) EGD - MAC (07/07/17) Social History Smoking/Tobacco Use Status: Current-Occasional
--- NOTE | 2018-05-07 14:23 | CMDISCH_ITS ---
LACE Index Scoring Tool - Questions: Length of Stay (in days): 3 Acuity (Admit via E.D.?): Yes E.D. Visits: 16 - Answers: Total Score: 10 Risk of Readmission: High Risk Care Management Discharge Reason for Hospitalization: LISA Discharge Plan: Pilar will return home when ready per MD. She will follow up with her PCP and plan of care as prescribed-she will resume community based supports including MANAGER [employer] supports and Medication management. She will transport via private vehicle with [facility] or her roommate. CM will continue to monitor clinical progress and support discharge planning considerations.. She will transport via private vehicle with [facility] or her roomate, Carole. Patient/Family Education Needs: Review discharge instructions, discuss Ask Me Three. - MH Services (Omit if N/A) Current MH Services: [employer]
--- NOTE | 2018-05-07 18:10 | NUR.NOTE ---
Nursing Note: At 1527 on 05/06/18, Med/health information coder received report from CANDY PACKER. At 1537 on 05/06/18, pt. was transferred from ICU to Med/Surg per MD order. Pt. was settled in to and oriented to their room. VS obtained; VSS. Pt. complaining of mild pain but denied the need for pain medication at that time. Head to toe assessment performed. See shift assessment for more information. RN will reassess as necessary.
== END 2018-05-07 15:30 | disposition home or self-care (01) | DRG 684 ==
LOC: ER 14:15 → ICU 16:29 → MS 05-06 16:21
PROVIDERS: Internal Medicine; Nurse Practitioner; Admitting Provider Internal Medicine; Emergency Provider Student in an Organized Health Care Education/Training Program; PCP Family Medicine; Visit Provider Internal Medicine
DX: N17.9 Acute kidney failure, unspecified (principal); R41.82 Altered mental status, unspecified; I10 Essential (primary) hypertension; G40.909 Epilepsy, unspecified, not intractable, without status epilepticus; E66.9 Obesity, unspecified; F31.9 Bipolar disorder, unspecified; F60.3 Borderline personality disorder; F19.10 Other psychoactive substance abuse, uncomplicated; K27.9 Peptic ulcer, site unspecified, unspecified as acute or chronic, without hemorrhage or perforation; M25.511 Pain in right shoulder
CPT/HCPCS: 36415; 36556; 36591; 36592; 51702; 76770; 80048; 80053; 80307; 83935; 87040; 93005; 96360; 96361; 97162; 97530; 99223; 99232; 99239; 99285; 70450; 71045; 73030; 73060; 81003; 81015; 82565; 83605; 83735; 84300; 84484; 85025; 93010; J0131; J1644

== ENCOUNTER 2018-05-12 15:40 | Outpatient (CLI) | payer MEDICAID, SELFPAY ==
[2018-05-12 16:59] LABS: HCT 37.4 % (36.0-46.0); HGB 12.7 g/dL (12.0-15.5); Mean Corpuscular Hemoglobin 31.6 pg (27.0-33.0); Mean Platelet Volume 9.4 fL (8.0-11.0); Platelet Count 486 x1000/uL (130-400); RBC 4.02 m/cumm (4.00-5.20); White Blood Cell Count 9.51 k/cumm (4.4-10.8)
[2018-05-12 17:10] LABS: ALT 51 U/L (12-78); AST 21 U/L (15-37); Alkaline Phosphatase 157 U/L (46-116); Anion Gap 10.4 mmol/L (3-11); BUN 12 mg/dL (7-18); Bilirubin, Total 0.2 mg/dL (0.2-1.0); CO2 28.6 mmol/L (21.0-32.0); CREATININE 0.83 mg/dL (0.55-1.02); Calcium 9.1 mg/dL (8.5-10.1); Chloride 101 mmol/L (98-107); Cholesterol 217 mg/dL (50-200); Glucose 85 mg/dL (70-100); HDL Cholesterol 35 mg/dL (40-60); LDL CHOLESTEROL 131 mg/dL (<100); Potassium 3.4 mmol/L (3.5-5.1); Sodium 140 mmol/L (136-145); Total Protein 7.6 g/dL (6.4-8.2); Triglyceride 382 mg/dL (30-150)
[2018-05-12 17:11] LABS: Hemoglobin A1C 5.5 % (4.5-6.2)
== END 2018-05-12 16:00 ==
PROVIDERS: PCP Family Medicine; Visit Provider Internal Medicine
DX: R73.01 Impaired fasting glucose (principal); D64.9 Anemia, unspecified; I10 Essential (primary) hypertension; K25.9 Gastric ulcer, unspecified as acute or chronic, without hemorrhage or perforation; Z13.220 Encounter for screening for lipoid disorders
CPT/HCPCS: 36415; 80053; 80061; 83721; 85027; 83036

== ENCOUNTER 2018-05-28 09:54 | Outpatient (CLI) | payer MEDICAID, SELFPAY ==
--- NOTE | 2018-05-28 09:40 | DI.RAD_ITS ---
SYMPTOMS/DIAGNOSIS: RIGHT SHOULDER PAIN RIGHT SHOULDER: An old fracture deformity is again noted of the proximal humerus. The humeral head appears normally positioned.
== END 2018-05-28 10:14 ==
PROVIDERS: PCP Family Medicine; Visit Provider Physician Assistant
DX: M25.511 Pain in right shoulder (principal); Z87.81 Personal history of (healed) traumatic fracture
CPT/HCPCS: 73030